=== PATIENT | female | born 1965 | race Caucasian/White ===

== ENCOUNTER 2016-07-15 02:05 | Inpatient (IN) | payer OTHER ==
[2016-07-15] MEDS ORDERED: NS 1,000 ML IV ONE (02:29)
[2016-07-15] MEDS ORDERED: ONDANSETRON 4 MG/2 ML VIAL ONE (02:34)
[2016-07-15] MEDS ORDERED: HYDROmorphONE/DILAUDID 1 MG/ML SYR ONE (02:35)
[2016-07-15 02:52] LABS: % IMMATURE GRANULYOCYTES 0.4 % (0.0-1.1); ABSOLUTE IMMATURE GRANULOCYTES 0.05 10^3/uL (0.00-0.10); ADD DIFF? NO; ADD MORPH? NO; ADD SCAN? NO; ATYPICAL LYMPHOCYTE FLAG 0 (0-99); FRAGMENT RBC FLAG 0 (0-99); HEMOGLOBIN 14.9 g/dL (12.6-16.3); LEFT SHIFT FLG 0 (0-99); LIPEMIA HEMOLYSIS FLAG 90 (0-99); MEAN CELL HEMOGLOBIN 31.2 pg (27.9-34.1); MEAN CELL HEMOGLOBIN CONCENTR. 33.9 g/dL (32.4-36.7); MEAN CELL VOLUME 92.2 fL (81.5-99.8); MEAN PLATELET VOLUME 10.1 fL (8.7-11.7); PLATELET CLUMPS FLAG 0 (0-99); PLATELET COUNT 361 10^3/uL (150-400); RED BLOOD CELL COUNT 4.77 10^6/uL (4.18-5.33)
[2016-07-15] MEDS ORDERED: ONDANSETRON 4 MG/2 ML VIAL IVP ONE (02:56)
[2016-07-15] MEDS ORDERED: HYDROmorphONE/DILAUDID 1 MG/ML SYR IVP ONE ×2 (02:56→03:26)
[2016-07-15 03:01] LABS: INR 2.63 (0.83-1.16); PROTIME(PATIENT) 28.4 SEC (12.0-15.0)
[2016-07-15 03:02] LABS: APTT 35.9 SEC (23.0-38.0)
[2016-07-15 03:18] LABS: ANION GAP 13 mEq/L (8-16); CALCIUM 10.6 mg/dL (8.5-10.4); CARBON DIOXIDE 21 mEq/l (22-31); CHLORIDE 107 mEq/L (97-110); CREATININE 1.3 mg/dL (0.6-1.0); GLOMERULAR FILTRATION RATE 44; GLUCOSE 130 mg/dL (70-100); POTASSIUM 3.9 mEq/L (3.5-5.2); SODIUM 141 mEq/L (134-144)
[2016-07-15] MEDS ORDERED: PROMETHAZINE HCL 25 MG/ML INJ ONE (03:25)
[2016-07-15] MEDS ORDERED: PROMETHAZINE HCL 25 MG/ML INJ IVP ONE (03:26)
--- NOTE | 2016-07-15 04:48 | EDPHY ---
H & P Stated Complaint: epigastric/supraumbilical pain x12h, similar to prior bowel obstruction Time Seen by Provider: 07/15/16 02:35 HPI/ROS: HPI The patient presents with abdominal pain which began suddenly at about 3:00 p.m. yesterday. Pain is diffuse throughout her abdomen, aching and cramping in nature and associated with distension. The pain radiates toward her back. She has had 4 episodes of vomiting, the last 1 was in our waiting room. It is nonbloody. Her last bowel movement was at about 2:00 p.m. yesterday. She has not had a fever. She has been unable to take her usual medications because of the vomiting. Her pain feels identical to a partial small-bowel obstruction she had in January of 2016 which improved with conservative measures. She is followed by Dr. Marcano. REVIEW OF SYSTEMS Constitutional: No fever, no chills. Eyes: No discharge. ENT: No sore throat. Cardiovascular: No chest pain, no palpitations. Respiratory: No cough, no shortness of breath. Gastrointestinal: See HPI Genitourinary: No hematuria. Musculoskeletal: No back pain. Skin: No rashes. Neurological: No headache. PMHx: End-stage renal disease status post kidney transplant with history of lupus, prior hernia repair with mesh PHYSICAL General Appearance: Alert, uncomfortable appearing Eyes: Pupils equal and round no pallor or injection ENT, Mouth: Mucous membranes moist Respiratory: There are no retractions, lungs are clear to auscultation Cardiovascular: Regular rate and rhythm Gastrointestinal: Abdomen is soft and distended, she is tender in her epigastrium and mid abdomen without rebound or guarding Neurological: A&O, moves all extremities Skin: Warm and dry, no rashes Musculoskeletal: Neck is supple non tender Extremities: symmetrical, full range of motion Psychiatric: Patient is oriented X 3, there is no agitation Source: Patient Exam Limitations: No limitations - Personal History LMP (Females 10-55): IUD In Place - Medical/Surgical History Hx Asthma: No Hx Chronic Respiratory Disease: No Hx Diabetes: No Hx Cardiac Disease: No Hx Renal Disease: Yes Hx Cirrhosis: No Hx Alcoholism: No Hx HIV/AIDS: No Hx Splenectomy or Spleen Trauma: Yes Other PMH: PSHx: bilateral nephrectomy. rigtht kidney transplant. splenectomy. lupus antibody anticoag. lupus. CVA. PMHx: hypothyroid - Social History Smoking Status: Never smoked Constitutional: Initial Vital Signs Temperature (C) 36.4 C 07/15/16 02:13 Heart Rate 89 07/15/16 02:13 Respiratory Rate 20 07/15/16 02:13 Blood Pressure 119/89 H 07/15/16 02:13 O2 Sat (%) 100 07/15/16 02:13 O2 Delivery Mode Room Air O2 (L/minute) 2 Allergies/Adverse Reactions: acyclovir Allergy (Intermediate, Verified 07/23/15 10:58) VERTIGO diazepam [From Valium] Allergy (Verified 07/23/15 10:58) droperidol [From Inapsine] Allergy (Verified 07/23/15 10:58) ibuprofen Allergy (Verified 07/23/15 10:58) Sulfa (Sulfonamide Antibiotics) Allergy (Verified 07/23/15 10:58) VANCYCLOVIR Allergy (Intermediate, Uncoded 07/23/15 10:58) VERTIGO Home Medications: Medication Instructions Recorded Levothyroxine [Synthroid 88 mcg 88 mcg PO DAILY06 07/09/09 (*)] cycloSPORINE [sandIMMUNE] 75 mg PO BID 07/09/09 predniSONE 5 mg PO DAILY 07/23/15 Calcitriol [Calcitriol (*)] 0.25 mcg PO TU 01/21/16 Mycophenolate Mofetil [Cellcept] 500 mg PO BID 01/21/16 Warfarin Sodium [Coumadin 7.5MG 7.5 mg PO HS 01/21/16 (*)] Medical Decision Making - Diagnostics Imaging Results: Abdomen two view plain film demonstrates multiple air-fluid levels throughout the small intestine, interpreted by me, radiology interpretation is pending. ED Course/Re-evaluation: In the emergency room, the patient was given IV fluids, antiemetics and Dilaudid for her pain with improvement in her symptoms. Labs were checked and did reveal an elevated white blood cell count. Creatinine was at its baseline with elevated BUN suggestive of dehydration. Because of patient's frequent imaging, KUB was performed in lieu was CT scan which did show air-fluid levels consistent with small-bowel obstruction. I have discussed the case with the hospitalist, Dr. Mcclain who will admit the patient given her multiple medical comorbidities. I have consulted with Dr. Bland, button tacker for , who will see the patient in the morning in consultation. Given that the patient has no vomiting currently she would like to avoid NG tube , and I feel this is reasonable for now. If her pain gets worse or if she develops vomiting, we will place an NG tube. Differential Diagnosis: This is a 50-year-old female with history of end-stage renal disease due to lupus status post kidney transplant on immunosuppressive who presents with abdominal pain, nausea and vomiting for the last several hours. Symptoms are similar to prior bowel obstruction. Differential diagnosis includes small bowel obstruction, partial small bowel obstruction, gastroenteritis, less likely bowel perforation or appendicitis. - Data Points Laboratory Results: Laboratory Results 07/15/16 02:25 07/15/16 02:25 07/15/16 07/15/16 07/15/16 02:25 02:25 02:25 WBC 12.86 10^3/uL H 10^3/uL (3.80-9.50) RBC 4.77 10^6/uL 10^6/uL (4.18-5.33) Hgb 14.9 g/dL g/dL (12.6-16.3) Hct 44.0 % % (38.0-47.0) MCV 92.2 fL fL (81.5-99.8) MCH 31.2 pg pg (27.9-34.1) MCHC 33.9 g/dL g/dL (32.4-36.7) RDW 14.0 % % (11.5-15.2) Plt Count 361 10^3/uL 10^3/uL (150-400) MPV 10.1 fL fL (8.7-11.7) Neut % (Auto) 72.0 % % (39.3-74.2) Lymph % (Auto) 19.7 % % (15.0-45.0) White % (Auto) 7.6 % % (4.5-13.0) Eos % (Auto) 0.1 % L % (0.6-7.6) Baso % (Auto) 0.2 % L % (0.3-1.7) Nucleat RBC Rel Count 0.0 % % (0.0-0.2) Absolute Neuts (auto) 9.26 10^3/uL H 10^3/uL (1.70-6.50) Absolute Lymphs (auto) 2.53 10^3/uL 10^3/uL (1.00-3.00) Absolute Monos (auto) 0.98 10^3/uL H 10^3/uL (0.30-0.80) Absolute Eos (auto) 0.01 10^3/uL L 10^3/uL (0.03-0.40) Absolute Basos (auto) 0.03 10^3/uL 10^3/uL (0.02-0.10) Absolute Nucleated RBC 0.00 10^3/uL 10^3/uL (0-0.01) Immature Gran % 0.4 % % (0.0-1.1) Immature Gran # 0.05 10^3/uL 10^3/uL (0.00-0.10) PT 28.4 SEC H SEC (12.0-15.0) INR 2.63 H (0.83-1.16) APTT 35.9 SEC SEC (23.0-38.0) Sodium 141 mEq/L mEq/L (134-144) Potassium 3.9 mEq/L mEq/L (3.5-5.2) Chloride 107 mEq/L mEq/L (97-110) Carbon Dioxide 21 mEq/l L mEq/l (22-31) Anion Gap 13 mEq/L mEq/L (8-16) BUN 24 mg/dL H mg/dL (7-23) Creatinine 1.3 mg/dL H mg/dL (0.6-1.0) Estimated GFR 44 Glucose 130 mg/dL H mg/dL (70-100) Calcium 10.6 mg/dL H mg/dL (8.5-10.4) Medications Given: Discontinued Medications Hydromorphone HCl (Dilaudid) 1 mg IVP EDNOW ONE Stop: 07/15/16 02:57 Last Admin: 07/15/16 02:40 Dose: 1 mg Hydromorphone HCl (Dilaudid) 1 mg IVP EDNOW ONE Stop: 07/15/16 03:27 Last Admin: 07/15/16 03:30 Dose: 1 mg Sodium Chloride (Ns) 1,000 mls @ 0 mls/hr IV ONCE ONE PRN Reason: Wide Open Stop: 07/15/16 02:30 Last Admin: 07/15/16 02:30 Dose: 1,000 mls Ondansetron HCl (Zofran) 4 mg IVP EDNOW ONE Stop: 07/15/16 02:57 Last Admin: 07/15/16 02:40 Dose: 4 mg Promethazine HCl (Phenergan) 12.5 mg IVP EDNOW ONE Stop: 07/15/16 03:27 Last Admin: 07/15/16 03:30 Dose: 12.5 mg Departure - Departure Disposition: [facility] Acute Clinical Impression: ESRD (end-stage renal disease) due to SLE Bowel obstruction Qualifiers: Intestinal obstruction type: unspecified Qualified Code(s): K56.60 - Unspecified intestinal obstruction Condition: Fair
[2016-07-15] MEDS ORDERED: ACETAMINOPHEN 325 MG TAB PO PRN (04:52)
[2016-07-15] MEDS ORDERED: ONDANSETRON DISINTEGRATING 4 MG TAB PO PRN (04:52)
[2016-07-15] MEDS ORDERED: NS 1,000 ML IV SCH (05:00)
--- NOTE | 2016-07-15 05:10 | PDGENHP ---
History and Physical - Chief Complaint abdominal pain - History of Present Illness Patient is a 50 year old female with history of lupus nephritis, s/p ESRD with renal transplant, on chronic immunosuppression, lupus anticoagulant on systemic anticoagulation, hypothyroidism who presents to the ED with complaint of acute onset abdominal pain, nausea and vomiting. Patient reports she has been experiencing these episodes of severe abdominal pain, which she is usually able to tolerate at home. There was one episode in 01/2016 that became exceptionally severe, didn't improve with home management, so she came to [facility]. She was diagnosed with a partial small bowel obstruction, treated conservatively with NG tube decompression and SBO resolved. Today, patient states she had been feeling well in the morning, even had a normal BM earlier in the day. However, at approximately 3pm, she developed acute onset L sided abdominal pain, distention that felt consistent with her previous SBO. Her pain continued to progress over the following hours, became associated with nausea and vomiting, reports emesis x 6 (nonbilious, nonbloody) . Given this progression of her symptoms, she came to the ED for further evaluation. On arrival to the ED patient was afebrile hemodynamically stable. Labs revealed mild leukocytosis, BMP with creatinine at her baseline. AXR was obtained and revealed air fluid levels that appeared consistent with partial vs complete SBO. She was given symptomatic treatment, NG tube was deferred due to improvement in vomiting and patient was admitted for further management. History Information - Allergies/Home Medication List Allergies/Adverse Reactions: acyclovir Allergy (Intermediate, Verified 07/23/15 10:58) VERTIGO diazepam [From Valium] Allergy (Verified 07/23/15 10:58) droperidol [From Inapsine] Allergy (Verified 07/23/15 10:58) ibuprofen Allergy (Verified 07/23/15 10:58) Sulfa (Sulfonamide Antibiotics) Allergy (Verified 07/23/15 10:58) VANCYCLOVIR Allergy (Intermediate, Uncoded 07/23/15 10:58) VERTIGO Home Medications: Levothyroxine [Synthroid 88 mcg (*)] 88 mcg PO DAILY06 07/09/09 [Last Taken ] cycloSPORINE [sandIMMUNE] 75 mg PO BID 07/09/09 [Last Taken 01/20/16] predniSONE 5 mg PO DAILY 07/23/15 [Last Taken 01/20/16] Calcitriol [Calcitriol (*)] 0.25 mcg PO TU 01/21/16 [Last Taken 01/19/16] Mycophenolate Mofetil [Cellcept] 500 mg PO BID 01/21/16 [Last Taken 01/20/16 21: 00] Warfarin Sodium [Coumadin 7.5MG (*)] 7.5 mg PO HS 01/21/16 [Last Taken 01/20/16] I have personally reviewed and updated: family history, medical history, social history, surgical history - Past Medical History Additional medical history: Lupus with nephropathy resulting in 3 renal transplants and chronic kidney disease stage 3 with baseline creatinine 1.4, lupus antiphospholipid antibody on chronic systemic anticoagulation, hypothyroidism - Surgical History Additional surgical history: 3 renal transplants with 1 transplanted kidney removed surgically, hernia repair, peritoneal catheter placement x2 - Family History Positive for: non-pertinent Additional family history: no recent sick family contacts - Social History Smoking Status: Never smoked Alcohol Use: None Drug Use: None 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 Review of Systems ROS: 10pt was reviewed & negative except for what was stated in HPI & below Physical Exam Temp Pulse Resp BP Pulse Ox 36.4 C 89 20 119/89 H 98 07/15/16 02:13 07/15/16 02:13 07/15/16 02:13 07/15/16 02:13 07/15/16 02:30 Constitutional: no apparent distress, appears nourished, uncomfortable Eyes: PERRL, anicteric sclera, EOMI Ears, Nose, Mouth, Throat: moist mucous membranes, hearing normal, ears appear normal, no oral mucosal ulcers Cardiovascular: regular rate and rhythym, no murmur, rub, or gallop, pulses symmetric bilaterally, No JVD, No edema Peripheral Pulses: 2+: dorsalis-pedis (R), dorsalis-pedis (L) Respiratory: no respiratory distress, no rales or rhonchi, clear to auscultation Gastrointestinal: other (Hypoactive BS, mildly distended diffusely tender) Genitourinary: no bladder fullness, no bladder tenderness Skin: warm, normal color, no fluctuance, no induration, erythema (erythema without ulceration or blistering on RUQ of abdomen), No mottled Musculoskeletal: full muscle strength, no muscle tenderness, normal joint ROM, no joint effusions Neurologic: AAOx3, sensation intact bilaterally, CN II-XII Intact, No weakness, No numbness Psychiatric: interacting appropriately, not anxious, not encephalopathic, thought process linear Lab Data & Imaging Review 07/15/16 02:25 07/15/16 02:25 WBC 12.86 10^3/uL (3.80-9.50) H 07/15/16 02:25 RBC 4.77 10^6/uL (4.18-5.33) 07/15/16 02:25 Hgb 14.9 g/dL (12.6-16.3) 07/15/16 02:25 Hct 44.0 % (38.0-47.0) 07/15/16 02:25 MCV 92.2 fL (81.5-99.8) 07/15/16 02:25 MCH 31.2 pg (27.9-34.1) 07/15/16 02:25 MCHC 33.9 g/dL (32.4-36.7) 07/15/16 02:25 RDW 14.0 % (11.5-15.2) 07/15/16 02:25 Plt Count 361 10^3/uL (150-400) 07/15/16 02:25 MPV 10.1 fL (8.7-11.7) 07/15/16 02:25 Neut % (Auto) 72.0 % (39.3-74.2) 07/15/16 02:25 Lymph % (Auto) 19.7 % (15.0-45.0) 07/15/16 02:25 Winn % (Auto) 7.6 % (4.5-13.0) 07/15/16 02:25 Eos % (Auto) 0.1 % (0.6-7.6) L 07/15/16 02:25 Baso % (Auto) 0.2 % (0.3-1.7) L 07/15/16 02:25 Nucleat RBC Rel Count 0.0 % (0.0-0.2) 07/15/16 02:25 Absolute Neuts (auto) 9.26 10^3/uL (1.70-6.50) H 07/15/16 02:25 Absolute Lymphs (auto) 2.53 10^3/uL (1.00-3.00) 07/15/16 02:25 Absolute Monos (auto) 0.98 10^3/uL (0.30-0.80) H 07/15/16 02:25 Absolute Eos (auto) 0.01 10^3/uL (0.03-0.40) L 07/15/16 02:25 Absolute Basos (auto) 0.03 10^3/uL (0.02-0.10) 07/15/16 02:25 Absolute Nucleated RBC 0.00 10^3/uL (0-0.01) 07/15/16 02:25 Immature Gran % 0.4 % (0.0-1.1) 07/15/16 02:25 Immature Gran # 0.05 10^3/uL (0.00-0.10) 07/15/16 02:25 PT 28.4 SEC (12.0-15.0) H 07/15/16 02:25 INR 2.63 (0.83-1.16) H 07/15/16 02:25 APTT 35.9 SEC (23.0-38.0) 07/15/16 02:25 Sodium 141 mEq/L (134-144) 07/15/16 02:25 Potassium 3.9 mEq/L (3.5-5.2) 07/15/16 02:25 Chloride 107 mEq/L (97-110) 07/15/16 02:25 Carbon Dioxide 21 mEq/l (22-31) L 07/15/16 02:25 Anion Gap 13 mEq/L (8-16) 07/15/16 02:25 BUN 24 mg/dL (7-23) H 07/15/16 02:25 Creatinine 1.3 mg/dL (0.6-1.0) H 07/15/16 02:25 Estimated GFR 44 07/15/16 02:25 Glucose 130 mg/dL (70-100) H 07/15/16 02:25 Calcium 10.6 mg/dL (8.5-10.4) H 07/15/16 02:25 Visualized and Interpreted imaging results: Yes Interpretation: AXR: small bowel kanchan c/w obstruction Assessment & Plan Assessment: Patient is a 50-year-old female with history of ESRD s/p previous renal transplant on chronic immunosuppression, chronic kidney disease stage 3, lupus anticoagulant who presents with acute abdominal pain. ED evaluation reveals likely acute small bowel obstruction. Plan: # Small bowel obstruction. Patient describes her symptoms as consistent with her previous episode of SBO. SBO likely due to adhesions with an extensive past abdominal surgical history. AXR shows abnormal gas pattern that appears consistent with SBO, unclear if complete vs partial. Patient currently not vomiting and pain is controlled with dilaudid, so will defer NG tube for now. If any additional vomiting occurs , will place NGT to suction. Patient's surgeon, Dr. Marcano, was informed of her admission and will evaluate patient in AM. - NPO including to meds - continue IVF hydration - IV pain and antiemetics as needed # chronic kidney disease stage 3 History of lupus nephropathy requiring renal transplant, creatinine currently at baseline. Will continue IV hydration and monitor BMP. - avoid nephrotoxic meds # Chronic immunosuppression Patient is chronically immunosuppressed in the setting of renal transplant. She did not take her PM doses of meds this evening due to her symptoms. Given strict NPO status, will have to adjust her immunosuppression regimen to IV regimen. In 01/2016 admission, Nephrology initiated IV steroid alternative therapy. Will consult nephrology in AM. (Dr. Carr is her outpatient tower control operator/PMD) # Lupus antiphospholipid antibody Chronically on systemic anticoagulation, INR is therapeutic. Will continue coumadin and monitor INR. # dispo: admit to inpatient status for management of acute SBO # gen: NPO DVT ppx: currently on Coumadin Full code
[2016-07-15] MEDS: ONDANSETRON 4 MG/2 ML VIAL IVP PRN ×3 (05:25→18:53)
[2016-07-15] MEDS: HYDROmorphONE/DILAUDID 1 MG/ML SYR IVP PRN ×5 (05:25→19:48)
[2016-07-15] MEDS: PROMETHAZINE HCL 25 MG/ML INJ IVP PRN ×2 (08:58→19:53)
[2016-07-15 10:04] LABS: COLOR YELLOW; LEUKOCYTE ESTERASE,URINE NEGATIVE (NEGATIVE); NITRITE,URINE NEGATIVE (NEGATIVE)
[2016-07-15 10:10] LABS: BACTERIA TRACE /hpf (NONE SEEN)
[2016-07-15] MEDS ORDERED: MYCOPHENOLATE MOFETIL HCL IV SCH ×2 (11:30→21:00)
[2016-07-15] MEDS ORDERED: D5W IV SCH ×2 (11:30→21:00)
[2016-07-15] MEDS ORDERED: METOCLOPRAMIDE 10 MG/2 ML VIAL IVP PRN (12:23)
--- NOTE | 2016-07-15 12:26 | GCON ---
[f rep st] CONSULTATION DATE OF CONSULTATION: 07/15/2016 REFERRING PHYSICIAN: Zehra Mcclain MD REASON FOR CONSULTATION: Kidney transplant. HISTORY OF PRESENT ILLNESS: History is taken from discussion with the patient, review of past medic al records from Dr. Carr, and review of the electronic medical record here, all of which I summ arize here. The patient is a 50-year-old female with history of end-stage renal disease due to lupus nephritis, status post 3 kidney transplants. Her first was at age 19 and was rejected after 10 years. She had a second transplant that lasted 5 years. Twelve years ago, she underwent another transplant and burk s been doing very well. Her creatinine runs between 1.2 and 1.4. She is maintained on CellCept, pr ednisone, and Prograf. She has a history of bilateral hopi nephrectomies around the time of her f irst kidney transplant, for unclear reasons, as well as a splenectomy. She has a history of recurre nt zoster, on prophylactic famciclovir. She was admitted to the hospital yesterday because of abdom inal pain, bloating, refractory nausea and vomiting. She had an episode that was similar last Decem leticia and was thought to have a partial small bowel obstruction. Her abdominal x-ray in the emergency department did not clearly demonstrate a small bowel obstruction. She continues to have nausea, ab dominal pain, and dry heaves. She also remarks that she has active zoster. She increased her dose of famciclovir earlier this week. She has lesions on her right abdomen, which is a typical location for her. She has not had a bowel movement since yesterday. She did pass flatus x2 today. PAST MEDICAL HISTORY: See HPI. -donor kidney transplant 2003, [facility], with 10 0% PRA. Anticardiolipin antibody with prior stroke, on chronic Coumadin with target INR 3 to 3.5. Hypothyroidism, hyperlipidemia, amenorrhea, hyperprolactinemia, alopecia, iron deficiency anemia, os teoporosis. Thyroid nodule, status post ablation. Hypertension, recurrent diarrhea. PAST SURGICAL HISTORY: Breast reduction, hernia repair. FAMILY HISTORY: She is adopted. SOCIAL HISTORY: She is a nonsmoker and does not use drugs. She is single. She has a boyfriend. Kirby kerns are planning a trip to [place], leaving today. 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 ALLERGIES: Sulfa, Valium, Inapsine, Valtrex, acyclovir. REVIEW OF SYSTEMS: See HPI. No chest pain, shortness of breath, or fevers. No dysuria. I reviewe d the 10-system review from her emergency department note and have nothing to add to that. PHYSICAL EXAMINATION: VITAL SIGNS: 123/85. Heart rate is 57. Respiratory rate is 16, satting 97% on room air, temp 36.8 Celsius. GENERAL: Very pleasant, not overweight, middle-aged fem joe who is moderately uncomfortable. HEAD: Atraumatic, normocephalic. EYES: Without scleral icte justa. ENT: Oral mucosa is slightly dry. NECK: No gross lymphadenopathy. HEART: Regular rate and rhythm without murmurs, gallops, rubs. LUNGS: Clear to auscultation bilaterally. ABDOMEN: Mildl y distended, diffusely tender without rebound or guarding. There are several raised erythematous le sions without vesicles on the right side of her abdomen, mostly in the right upper quadrant. LOWER EXTREMITIES: Without any edema. SKIN: She has tenting on her hands. No rashes. MUSCULOSKELETAL: No gross joint swelling or deformities. NEUROLOGICAL: Moves all extremities well. Alert and con versive. No focal deficits. LABS AND STUDIES: Sodium is 141, potassium 3.9, CO2 21, BUN 24, creatinine 1.3, calcium 10.6. Whit e count 12.9, hemoglobin 14.9, platelets 361. Urinalysis: 2+ blood, 3-5 red cells, trace bacteria. INR is 2.6. I personally reviewed her abdominal x-ray, which showed some dilated loops of small bowel but no air -fluid levels. IMPRESSION AND PLAN: 1. Kidney transplant recipient. She is unable to take p.o. at this time due to nausea and vomiting . I will convert her to IV CellCept and Solu-Medrol. We can hold Prograf for a couple of days unti l she is able to take pills. Her creatinine is currently at baseline. Avoid volume depletion. Con tinue normal saline infusion. 2. Abdominal pain, nausea, and vomiting. Abdominal x-ray did not confirm small bowel obstruction, although her clinical history is suggestive. General Surgery to evaluate today. No peritoneal sign s on exam. I do not think her zoster is enough to cause this degree of nausea as well as diffuse pa in. It sounds like she is to have a small bowel follow-through to look for bowel obstruction or a t ransition point. I would consider placement of an NG tube. 3. Antiphospholipid antibody syndrome. She is normally on Coumadin. She should be bridged with he amy, given her history of prior stroke. Hopefully, she can start taking pills again soon. 4. Zoster. She takes famciclovir prophylactically. Increase dose to 500 mg daily. Her GFR is rig ht at the cutoff where you would even dose 500 mg twice daily. Unfortunately, she cannot take pills . She is allergic to acyclovir and Valtrex, unfortunately. We will need to review with LEO and Fe valencia whether there are any other options. I will defer to the primary service on this. 5. Lupus. No symptoms to suggest flare. /[id number]/MODL
--- NOTE | 2016-07-15 13:45 | GCON ---
[f rep st] CONSULTATION DATE OF CONSULTATION: 07/15/2016 HISTORY OF PRESENT ILLNESS: This is a 50-year-old female with a history of abdominal pain, nausea a nd vomiting. Per the patient, this began suddenly yesterday afternoon. The patient developed the o nset of crampy abdominal pain, followed by multiple episodes of nausea and vomiting. Of note, the p katelynn has had multiple episodes similar to this, at least 1-2 per month. Patient was hospitalized for a similar issue in January of 2016. This resolved with conservative therapy. Patient states t hat this current episode has improved significantly. She denies significant pain at this point. Sh krista still has some nausea but has not had any recent vomiting. The patient denies any fever or chills . The patient has had some flatus today but last bowel movement was yesterday. Of note, the patien t has had multiple renal transplants as well as nephrectomy and hernia repair in the past. PAST MEDICAL HISTORY: Significant for lupus, end-stage renal disease. CURRENT MEDICATIONS: Include calcitriol, cyclosporine, famciclovir, levothyroxine, CellCept, predni sone and Coumadin. ALLERGIES: Include acyclovir, diazepam, droperidol and nonsteroidal anti-inflammatories. PAST SURGICAL HISTORY: As above. SOCIAL HISTORY: Patient is a nonsmoker. PHYSICAL EXAM: VITAL SIGNS: Temperature 36.8, pulse 57, respirations 16, blood pressure is 123/85. GENERAL: She is alert female who appears uncomfortable. HEENT: Sclerae are anicteric. NECK: T here is no evidence of a jugular venous distention. HEART: Regular rate and rhythm. LUNGS: Clear to auscultation bilaterally. Her abdomen is distended. There are multiple well-healed surgical sc ars. She has mild, diffuse tenderness to palpation. There is no rebound or guarding. No distinct masses are identified. EXTREMITIES: Without cyanosis, clubbing, or edema. DIAGNOSTIC DATA: The patient has a CBC with a white count of 12.9, hemoglobin 14.9, hematocrit 44, and platelets of 361. Chemistries demonstrate a sodium of 141, potassium 3.9, chloride 107, CO2 21, BUN 24, creatinine 1.3. Glucose of 130. PTT is 28.4, INR is 2.63 and PTT is 35.9. DIAGNOSTIC IMAGING: Patient has a flat plate of the abdomen. This demonstrates no evidence of free air. There is minimal bowel dilation. ASSESSMENT AND PLAN: This is a 50-year-old female with possible partial small bowel obstruction. O ptions were discussed at length with the patient. At this point, I agree with withholding the nasog astric tube as she is not currently vomiting. She understands this may become necessary if her cond ition does not improve. We will continue n.p.o. status with IV hydration and continue bowel rest. A possibility of small bowel follow-through was discussed with the patient. Signs and symptoms of c oncern were explained. Her questions were answered. /[id number]/MODL
[2016-07-15] MEDS: D5W IV SCH ×2 (14:02→21:37)
[2016-07-15] MEDS: methylPREDNISolone SOD SUCC 40 MG/ML VIAL IVP SCH (14:02)
[2016-07-15] MEDS: MYCOPHENOLATE MOFETIL HCL IV SCH ×2 (14:02→21:37)
--- NOTE | 2016-07-15 16:56 | HOSPPROG ---
Hospitalist Progress Note Assessment/Plan: Assessment: 50-year-old female p/w acute SBO Plan: # Small bowel obstruction. Acute, more visible on repeat x-ray this AM ( personally interpreted), w/ ongoing nausea and abd pain - d/w patient, she is amenable to NGT at this time - add reglan PRN, cont zofran/phenergan and PRN dilaudid - cont NPO - appreciate surgical eval # Chronic kidney disease stage 3. S/p transplant for SLE, currently on immunosuppressives - d/w Dr. Flaherty, she will get cellcept and steroids while NPO - cont monitor Cr # Chronic immunosuppression. Appreciate renal asst w/ Rx # Lupus antiphospholipid antibody. Cont to monitor INR, bridge w/ lovenox when < 2 Diet. NPO PPx. High risk, remain systemically anticoagulated Code. Full Dispo. ADD uncertain, remain NPO and on IVF Subjective: patient reports ongoing nausea, dry heaving Objective: Vital Signs Temp Pulse Resp BP Pulse Ox 36.8 C 61 14 102/66 94 07/15/16 07:44 07/15/16 16:00 07/15/16 16:00 07/15/16 16:00 07/15/16 16:00 07/14/16 07/15/16 07/16/16 05:59 05:59 05:59 Intake Total 1000 Output Total 300 Balance 1000 -300 PT 28.4 SEC (12.0-15.0) H 07/15/16 02:25 INR 2.63 (0.83-1.16) H 07/15/16 02:25 - Time Spent With Patient Time Spent with Patient: greater than 35 minutes Time Spent with Patient: Greater than 35 minutes spent on this patients care, greater than 50% of time spent counseling, educating, and coordinating care regarding the above mentioned plan. 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
[2016-07-16] MEDS: HYDROmorphONE/DILAUDID 1 MG/ML SYR IVP PRN ×5 (00:14→19:54)
[2016-07-16] MEDS: PROMETHAZINE HCL 25 MG/ML INJ IVP PRN ×2 (02:50→19:52)
[2016-07-16 06:27] LABS: INR 3.54 (0.83-1.16)
[2016-07-16 07:02] LABS: ALANINE AMINOTRANSFERASE 26 IU/L (9-52); ALBUMIN 2.7 g/dL (3.5-5.0); ALKALINE PHOSPHATASE 40 IU/L (38-126); ANION GAP 6 mEq/L (8-16); ASPARTATE AMINOTRANSFERASE 18 IU/L (14-46); BILIRUBIN,TOTAL 0.8 mg/dL (0.1-1.4); CALCIUM 7.2 mg/dL (8.5-10.4); CARBON DIOXIDE 20 mEq/l (22-31); CHLORIDE 115 mEq/L (97-110); GLOMERULAR FILTRATION RATE 59; GLUCOSE 88 mg/dL (70-100); POTASSIUM 3.8 mEq/L (3.5-5.2); SODIUM 141 mEq/L (134-144); TOTAL PROTEIN 4.9 g/dL (6.3-8.2)
[2016-07-16 07:30] LABS: ABSOLUTE NRBC COUNT 0.02 10^3/uL (0-0.01); ADD DIFF? YES; ADD MORPH? NO; ATYPICAL LYMPHOCYTE FLAG 0 (0-99); FRAGMENT RBC FLAG 10 (0-99); HEMATOCRIT 37.1 % (38.0-47.0); LIPEMIA HEMOLYSIS FLAG 80 (0-99); MEAN CELL HEMOGLOBIN 30.8 pg (27.9-34.1); MEAN CELL HEMOGLOBIN CONCENTR. 32.3 g/dL (32.4-36.7); MEAN CELL VOLUME 95.4 fL (81.5-99.8); MEAN PLATELET VOLUME 10.7 fL (8.7-11.7); NRBC-AUTO% 0.5 % (0.0-0.2); PLATELET CLUMPS FLAG 0 (0-99); PLATELET COUNT 291 10^3/uL (150-400); RED BLOOD CELL COUNT 3.89 10^6/uL (4.18-5.33); RED CELL DISTRIBUTION WIDTH 14.5 % (11.5-15.2)
[2016-07-16 07:35] LABS: ADD SCAN? NO; LEFT SHIFT FLG 280 (0-99)
[2016-07-16 08:01] LABS: PLATELET ESTIMATE ADEQUATE (ADEQ)
[2016-07-16] MEDS: methylPREDNISolone SOD SUCC 40 MG/ML VIAL IVP SCH (08:48)
[2016-07-16] MEDS: MYCOPHENOLATE MOFETIL HCL IV SCH ×2 (08:52→21:22)
[2016-07-16] MEDS: D5W IV SCH ×2 (08:52→21:22)
--- NOTE | 2016-07-16 09:14 | HOSPPROG ---
Hospitalist Progress Note Assessment/Plan: * recurrent small-bowel obstruction * Also symptoms over the last year of intermittent episodes of abdominal pain that may be consistent with transient obstruction * Continue NG tube decompression * Surgery following * history of renal transplant * Nephrology input appreciated * Continue immunosuppressives * anti phospholipid syndrome * INR 3.5 * Leading drift down * Heparin or Lovenox bridging * history of lupus Subjective: Still with nausea abdominal pain. Not passing any gas Objective: Vital Signs Temp Pulse Resp BP Pulse Ox 37.1 C 89 15 118/78 97 07/15/16 20:02 07/15/16 20:02 07/15/16 20:02 07/15/16 20:02 07/15/16 20:02 Laboratory Results 07/16/16 06:00 07/16/16 06:00 07/15/16 07/16/16 07/17/16 05:59 05:59 05:59 Intake Total 1000 2105 Output Total 475 Balance 1000 1630 PT 36.0 SEC (12.0-15.0) H 07/16/16 06:00 INR 3.54 (0.83-1.16) H 07/16/16 06:00 - Time Spent With Patient Time Spent with Patient: greater than 35 minutes (Discussed possibility of surgery) Time Spent with Patient: Greater than 35 minutes spent on this patients care, greater than 50% of time spent counseling, educating, and coordinating care regarding the above mentioned plan. 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
[2016-07-16] MEDS ORDERED: D5W 1/2 NS W/ 20 KCl/L 1,000 ML IV SCH (09:15)
[2016-07-16] MEDS ORDERED: NS 1,000 ML IV ONE ×4 (09:26→10:30)
[2016-07-16] MEDS ORDERED: NS 500 ML IV SCH (09:30)
[2016-07-16] MEDS ORDERED: NS 1,000 ML IV SCH (09:45)
[2016-07-16] MEDS ORDERED: D5W 1/2 NS 1,000 ML IV SCH (09:45)
--- NOTE | 2016-07-16 10:05 | SOAPPROG ---
[place] Progress Note Assessment/Plan: Assessment/Plan: h/o renal transplant: baseline Cr around 1.2-1.4, currently better than baseline at 1.0. - Will continue IV solumedrol and IV Cellcept. - Will switch back to her PO regimen as soon as she is able to tolerate pills. - Will continue to monitor renal function. - Will switch IVFs to D51/2NS @ 125ml/hr. Likely partial SBO: pt currently being managed conservatively with bowel rest and NG tube, surgery following. Subjective: No acute events overnight. Pt had NG tube placed yesterday, still having some nausea but less vomiting, also with abdominal pain. Objective: Vital Signs Temp Pulse Resp BP Pulse Ox 36.8 C 87 12 109/95 H 96 07/16/16 08:00 07/16/16 08:00 07/16/16 08:00 07/16/16 08:00 07/16/16 08:00 Laboratory Results 07/16/16 06:00 07/16/16 06:00 07/15/16 07/16/16 07/17/16 05:59 05:59 05:59 Intake Total 1000 2105 Output Total 475 Balance 1000 1630 PT 36.0 SEC (12.0-15.0) H 07/16/16 06:00 INR 3.54 (0.83-1.16) H 07/16/16 06:00 General: alert and oriented, no acute distress Eyes: EOMI, PERRL OP: NG tube in place CV: RRR Resp: nonlabored respirations on RA Abd: soft, mild TTP Ext: no edema Neuro: CN II-XII grossly intact, no asterixis Psych: cooperative, appropriate mood and affect ICD10 Worksheet Patient Problems: Problems Problem Status Onset Bowel obstruction Acute 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
[2016-07-16] MEDS: LEVOTHYROXINE 100 MCG/5 ML SYR IVP SCH ×2 (10:37→11:11)
[2016-07-16] MEDS: FAMCICLOVIR 250 MG TAB PO SCH (11:11)
--- NOTE | 2016-07-16 11:19 | SOAPPROG ---
[place] Progress Note Assessment/Plan: Assessment:partial SBO anticoagulation/anti-phospholipid antibody renal transplant Plan:SBFT discussed possible need for enterolyisis 07/16/16 11:16 Subjective: ongoing intermitant pain/passed small amount of flatus Objective: Vital Signs Temp Pulse Resp BP Pulse Ox 36.8 C 87 12 109/95 H 96 07/16/16 08:00 07/16/16 08:00 07/16/16 08:00 07/16/16 08:00 07/16/16 08:00 Laboratory Results 07/16/16 06:00 07/16/16 06:00 07/15/16 07/16/16 07/17/16 05:59 05:59 05:59 Intake Total 1000 2105 Output Total 475 Balance 1000 1630 PT 36.0 SEC (12.0-15.0) H 07/16/16 06:00 INR 3.54 (0.83-1.16) H 07/16/16 06:00 Physical Exam - Physical Exam General Appearance: alert, mild distress Abdomen: soft, distended, other (mild RUQ tenderness/no guarding/hypoactive bowel sounds) ICD10 Worksheet Patient Problems: Problems Problem Status Onset Bowel obstruction Acute 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
[2016-07-16] MEDS ORDERED: NS 500 ML IV ONE (11:30)
[2016-07-16] MEDS: D5W 1/2 NS 1,000 ML IV SCH (13:22)
[2016-07-16 20:42] LABS: INR 2.81 (0.83-1.16); PROTIME(PATIENT) 29.9 SEC (12.0-15.0)
[2016-07-16] MEDS ORDERED: PHYTONADIONE 2.5 MG in NS 50 ML IV ONE (21:34)
--- NOTE | 2016-07-16 21:40 | SOAPPROG ---
Downtime Inpatient MD Late Entry SOAP Note: SBFT shows no progress after 5 hours/high grade distal small bowel obstruction. I recommended returning to low continuous suction and initiating reversal of coumadin in preparation for surgery. Discussed with patients BLU Rodríguez and Kalyani. Dr. Young and I discussed gentle reversal with small dose of vit K/may need FFP-type and screen sent. Orlando Marcano MD, FACS
[2016-07-17] MEDS: HYDROmorphONE/DILAUDID 1 MG/ML SYR IVP PRN ×3 (01:48→07:22)
[2016-07-17] MEDS: ONDANSETRON 4 MG/2 ML VIAL IVP PRN ×4 (01:48→11:29)
[2016-07-17] MEDS: PROMETHAZINE HCL 25 MG/ML INJ IVP PRN (01:54)
[2016-07-17 05:44] LABS: ADD DIFF? YES; ADD MORPH? NO; ADD SCAN? YES; ATYPICAL LYMPHOCYTE FLAG 0 (0-99); FRAGMENT RBC FLAG 0 (0-99); HEMATOCRIT 39.6 % (38.0-47.0); HEMOGLOBIN 12.8 g/dL (12.6-16.3); LIPEMIA HEMOLYSIS FLAG 80 (0-99); MEAN CELL HEMOGLOBIN 30.5 pg (27.9-34.1); MEAN CELL HEMOGLOBIN CONCENTR. 32.3 g/dL (32.4-36.7); MEAN CELL VOLUME 94.5 fL (81.5-99.8); MEAN PLATELET VOLUME 10.1 fL (8.7-11.7); PLATELET CLUMPS FLAG 0 (0-99); PLATELET COUNT 273 10^3/uL (150-400); RED BLOOD CELL COUNT 4.19 10^6/uL (4.18-5.33); RED CELL DISTRIBUTION WIDTH 14.3 % (11.5-15.2)
[2016-07-17 05:46] LABS: LEFT SHIFT FLG 300 (0-99)
[2016-07-17 05:54] LABS: INR 1.71 (0.83-1.16); PROTIME(PATIENT) 20.1 SEC (12.0-15.0)
[2016-07-17 06:03] LABS: ALANINE AMINOTRANSFERASE 32 IU/L (9-52); ALBUMIN 3.4 g/dL (3.5-5.0); ALKALINE PHOSPHATASE 42 IU/L (38-126); ANION GAP 4 mEq/L (8-16); ASPARTATE AMINOTRANSFERASE 26 IU/L (14-46); BILIRUBIN,TOTAL 1.3 mg/dL (0.1-1.4); CALCIUM 9.3 mg/dL (8.5-10.4); CARBON DIOXIDE 23 mEq/l (22-31); CHLORIDE 108 mEq/L (97-110); CREATININE 1.2 mg/dL (0.6-1.0); GLOMERULAR FILTRATION RATE 48; GLUCOSE 113 mg/dL (70-100); POTASSIUM 4.4 mEq/L (3.5-5.2); SODIUM 135 mEq/L (134-144); TOTAL PROTEIN 6.3 g/dL (6.3-8.2)
[2016-07-17 06:17] LABS: PLATELET ESTIMATE ADEQUATE (ADEQ)
[2016-07-17] MEDS ORDERED: ALTEPLASE 2 MG VIAL IVP PRN (08:34)
--- NOTE | 2016-07-17 08:34 | SOAPPROG ---
[facility] Progress Note Assessment/Plan: Assessment: distal SBO anticoagulation/anti-phospholipid antibody-INR 1.7 this AM renal transplant Plan: I recommended laparotomy/lysis adhesions she will likely need IV fluids for the next 3-7 days and I recommended a PICC since she has extremely poor peripheral access 07/16/16 11:16 07/17/16 08:32 Subjective: ongoing pain/had some loose stool Objective: Vital Signs Temp Pulse Resp BP Pulse Ox 37.1 C 80 18 102/60 92 07/16/16 20:00 07/17/16 04:00 07/17/16 04:00 07/17/16 04:00 07/17/16 04:00 Laboratory Results 07/17/16 05:20 07/17/16 05:20 07/16/16 07/17/16 07/18/16 05:59 05:59 05:59 Intake Total 2105 2415 Output Total 475 1600 Balance 1630 815 PT 20.1 SEC (12.0-15.0) H D 07/17/16 05:20 INR 1.71 (0.83-1.16) H 07/17/16 05:20 KUB this morning shows persistant contrast in the jejunum/ileum with no contrast in the colon Physical Exam - Physical Exam General Appearance: alert, mild distress Cardiac/Chest: regular rate, rhythm Abdomen: soft, distended, other (hypoactive bowel sounds/tympanitic and diffusely tender without guarding) ICD10 Worksheet Patient Problems: Problems Problem Status Onset Bowel obstruction Acute 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
--- NOTE | 2016-07-17 10:22 | SOAPPROG ---
[place] Progress Note Assessment/Plan: Assessment/Plan: h/o renal transplant: baseline Cr around 1.2-1.4, currently better than baseline at 1.2. - Will continue IV solumedrol and IV Cellcept. - Will switch back to her PO regimen as soon as she is able to tolerate pills. - Will continue to monitor renal function. - Continue IVFs of D51/2NS. Hypotension: BP is a bit soft this am, will give 500ml NS bolus. SBO: has been managed conservatively thus far, SBFT shows high grade stenosis yesterday. Planning on surgical intervention today. Subjective: No acute events overnight. Pt denies any vomiting. She had small bowel follow through, which showed high grade stenosis, planning on surgery today. Objective: Vital Signs Temp Pulse Resp BP Pulse Ox 37.0 C 74 17 97/68 L 96 07/17/16 08:00 07/17/16 08:00 07/17/16 08:00 07/17/16 08:00 07/17/16 08:00 Laboratory Results 07/17/16 05:20 07/17/16 05:20 07/16/16 07/17/16 07/18/16 05:59 05:59 05:59 Intake Total 2105 2415 Output Total 475 1600 Balance 1630 815 PT 20.1 SEC (12.0-15.0) H D 07/17/16 05:20 INR 1.71 (0.83-1.16) H 07/17/16 05:20 General: alert and oriented, no acute distress Eyes; EOMI, PERRL OP: Clear, NG tube in place CV: RRR Resp: N onlabored respirations on RA Abd: Soft, ND Ext: no edema Neuro; CN II-XII grossly intact, no asterixis Psych: cooperative, appropriate mood and affect ICD10 Worksheet Patient Problems: Problems Problem Status Onset Bowel obstruction Acute 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
[2016-07-17] MEDS: LEVOTHYROXINE 100 MCG/5 ML SYR IVP SCH (10:25)
[2016-07-17] MEDS: MYCOPHENOLATE MOFETIL HCL IV SCH ×2 (10:25→21:20)
[2016-07-17] MEDS: D5W IV SCH ×2 (10:25→21:20)
[2016-07-17] MEDS ORDERED: NS 1,000 ML IV SCH (10:30)
--- NOTE | 2016-07-17 10:49 | HOSPPROG ---
Hospitalist Progress Note Assessment/Plan: * recurrent small-bowel obstruction * Also symptoms over the last year of intermittent episodes of abdominal pain that may be consistent with transient obstruction * small-bowel follow-through shows high-grade obstruction - will go to surgery * history of renal transplant * Nephrology input appreciated * Continue immunosuppressives * anti phospholipid syndrome * INR 1.7 * will need heparin bridging after surgery * shingles * improving * continue oral famciclovir * history of lupus Subjective: had small bowel movement but still with abdominal distention Objective: Vital Signs Temp Pulse Resp BP Pulse Ox 37.0 C 74 17 97/68 L 96 07/17/16 08:00 07/17/16 08:00 07/17/16 08:00 07/17/16 08:00 07/17/16 08:00 Laboratory Results 07/17/16 05:20 07/17/16 05:20 07/16/16 07/17/16 07/18/16 05:59 05:59 05:59 Intake Total 2105 2415 Output Total 475 1600 Balance 1630 815 PT 20.1 SEC (12.0-15.0) H D 07/17/16 05:20 INR 1.71 (0.83-1.16) H 07/17/16 05:20 discussed with surgery, small-bowel follow-through reviewed and interpreted - Physical Exam Constitutional: no apparent distress, appears nourished, not in pain Eyes: anicteric sclera, EOMI Ears, Nose, Mouth, Throat: moist mucous membranes, hearing normal Cardiovascular: regular rate and rhythym Respiratory: no respiratory distress, no rales or rhonchi, clear to auscultation Gastrointestinal: other ( decreased bowel sounds, distended mild tenderness) Skin: warm Neurologic: AAOx3 Psychiatric: interacting appropriately, not anxious, not encephalopathic, thought process linear ICD10 Worksheet Patient Problems: Problems Problem Status Onset Bowel obstruction Acute 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
[2016-07-17] MEDS: methylPREDNISolone SOD SUCC 40 MG/ML VIAL IVP SCH (11:22)
[2016-07-17] MEDS: FAMCICLOVIR 250 MG TAB PO SCH (12:35)
[2016-07-17] MEDS ORDERED: MIDAZOLAM 2 MG/2 ML VIAL ONE (13:07)
[2016-07-17] MEDS ORDERED: CEFAZOLIN 2 GM/DEXTROSE/100 ML BAG IV ONE (13:17)
[2016-07-17] MEDS ORDERED: ceFAZolin 2 GM/DEXTROSE 100 ML IV ONE (13:19)
[2016-07-17] MEDS ORDERED: ROCURONIUM 50 MG/5 ML VIAL ONE (13:26)
[2016-07-17] MEDS ORDERED: fentaNYL 100 MCG/2 ML INJ ONE ×2 (13:26→14:58)
[2016-07-17] MEDS ORDERED: PROPOFOL/EMULSION 500 MG/50 ML BOTTLE IV ONE (13:26)
[2016-07-17] MEDS ORDERED: DEXAMETHASONE 4 MG/ML VIAL ONE (13:27)
[2016-07-17] MEDS ORDERED: LIDOCAINE 2% 100 MG/5 ML SYR ONE (13:27)
[2016-07-17] MEDS ORDERED: ONDANSETRON 4 MG/2 ML VIAL ONE (13:27)
[2016-07-17] MEDS ORDERED: BUPIVACAINE 0.25% 270 ML in PUMP SET 1 EA MISC SCH (13:30)
[2016-07-17] MEDS ORDERED: PHM DO NOT USE-BUPIVACAINE 0.25% THORACOTOMY MISC SCH (13:30)
[2016-07-17] MEDS ORDERED: BUPIVACAINE 0.25% 30 ML SDV ONE (13:35)
[2016-07-17] MEDS ORDERED: PHENYLEPHRINE HCL 100 MCG/ML SYR ONE (13:37)
[2016-07-17] MEDS ORDERED: morphINE *ANESTHESIA ONLY* 10 MG/ML VIAL ONE (13:52)
[2016-07-17] MEDS ORDERED: SUGAMMADEX SODIUM 200 MG/2 ML VIAL IVP ONE (14:19)
[2016-07-17] MEDS ORDERED: NALOXONE HCL 0.4 MG/ML INJ IVP PRN (14:39)
--- NOTE | 2016-07-17 14:40 | POSTOPPROG ---
Post Op Note Date of Operation: 07/17/16 Surgeon: Rene Marcano (, FACS) Anesthesiologist: Darien Sher MD Anesthesia: GET(General Endotracheal) Pre-op Diagnosis: SBO Post-op Diagnosis: small bowel volvulus/jejunal lesion s Procedure: enterolysis/detosion, resection small bowel lesion x 2 Findings: single band adhesion obstruction TI Inf/Abcess present in the surg proc area at time of surgery?: No Specimen(s): jejunal lesions/nodules x 2
[2016-07-17] MEDS: HYDROmorphONE/DILAUDID 6 MG/30 ML PCA IV PRN (17:18)
[2016-07-17] MEDS: D5W 1/2 NS 1,000 ML IV SCH (17:18)
--- NOTE | 2016-07-17 22:12 | GOP ---
[f rep st] OPERATIVE REPORT DATE OF OPERATION: 07/17/2016 SURGEON: Rene Marcano MD, FACS ANESTHESIA: General endotracheal. ANESTHESIOLOGIST: Darien Sher MD PREOPERATIVE DIAGNOSIS: 1. Small-bowel obstruction. 2. Status post renal transplant. POSTOPERATIVE DIAGNOSIS: 1. Small-bowel obstruction. 2. Small bowel volvulus. 3. Jejunal serosal lesions of indeterminate etiology. PROCEDURE PERFORMED: 1. Laparotomy with lysis of adhesions and detorsion for volvulus. 2. Excision of jejunal serosal lesions of indeterminate etiology x2. FINDINGS: 1. Mildly ischemic bowel secondary to volvulus. 2. Single band adhesion between the jejunum and root of the mesentery obstructing the terminal ilium just proximal to the ileocecal valve. 1. Jejunal serosal lesions of indeterminate etiology measuring approximately 6 mm and 1.5 cm excised from the serosa with full-thickness bowel wall using a EBER stapler and submitted for permanent section. ESTIMATED BLOOD LOSS: 10 mL. DESCRIPTION OF PROCEDURE: After informed consent was obtained, the patient was brought to the operating room and placed under general anesthesia. The abdomen was prepped and draped in usual fashion. Before proceeding, a time-out and identification of patient was performed. She had undergone a small bowel follow -through for a suspected partial small bowel obstruction and was found to have complete small bowel obstruction without passage of contrast into the colon at approximately 16 hours after initiation of her study. She had multiple prior operations, including 3 prior renal transplants, bilateral nephrectomy, and peritoneal dialysis catheter placements in the past. She had also undergone repair of an incisional hernia with mesh in the remote past. The abdomen was entered through a low midline incision from the umbilicus down to the pubis. There were no anterior abdominal wall adhesions. A small amount of [id number], clear peritoneal fluid was encountered. The bowel was noted to be ischemic. The incision was extended above the umbilicus and the bowel gently manipulated and the adhesion causing the obstruction found to be at the base of the mesentery from the midjejunum. This was lysed using a combination of sharp dissection and cautery for hemostasis. The adhesion had obstructed the terminal ilium, which was in the midline along with the patient' s cecum and appendix. These had been displaced by her most recent renal transplant and there was no fixation of the right colon. The adhesion had caused a partial bowel volvulus with the bowel being rotated clockwise around the point of obstruction. After the bowel was detorsed, color returned from a dusky purple to a pink healthy color of the bowel. Running the bowel from the ligament of Treitz to the ileocecal valve, I noted 2 unusual appearing serosal lesions, as well as a small hematoma at the base of the mesentery. The lesions were indeterminate in etiology and appeared neoplastic, but had benign characteristics in general. One measured approximately 6 mm, the other approximately 1.5 cm. Both were resected transversely with firings of the EBER stapler with full-thickness serosa adjacent to it. These were submitted for permanent section. The staple lines were oversewn with interrupted 3-0 Vicryl sutures to secure hemostasis. I should mention that the patient's INR was 1.7 going into the OR and bleeding during the surgery was minimal and easily controlled. The hematoma at the base of the mesentery appeared stable, and was not expanding at time of surgery, and was left undisturbed. The bowel was returned to the abdominal cavity. Warm saline was used to irrigate the peritoneal cavity and hemostasis appeared secure. A sheet of Interceed was placed at the root of the mesentery where the adhesion had occurred in an attempt to prevent future adhesions at this location. Hemostasis appeared secure. The bowel appeared healthy. The abdominal wall was closed with a single layer of continuous running #1 PDS suture. ON-Q pumps were placed adjacent to the incision bilaterally 10 cm in length and were primed with 0.25% Marcaine. These were secured to the skin with Dermabond and Tegaderm. The incision was closed with lisa. Sterile dressings were applied. The patient was returned to the recovery room, extubated, in satisfactory condition. Needle , sponge, and instrument counts were correct. COMPLICATIONS: None. /[id number]/MODL MTDD
[2016-07-18] MEDS: D5W 1/2 NS 1,000 ML IV SCH ×2 (04:33→13:18)
[2016-07-18 05:14] LABS: INR 1.21 (0.83-1.16); PROTIME(PATIENT) 15.3 SEC (12.0-15.0)
[2016-07-18 05:20] LABS: ALANINE AMINOTRANSFERASE 27 IU/L (9-52); ALBUMIN 2.8 g/dL (3.5-5.0); ALKALINE PHOSPHATASE 36 IU/L (38-126); ANION GAP 5 mEq/L (8-16); ASPARTATE AMINOTRANSFERASE 20 IU/L (14-46); BILIRUBIN,TOTAL 0.8 mg/dL (0.1-1.4); CALCIUM 8.3 mg/dL (8.5-10.4); CARBON DIOXIDE 25 mEq/l (22-31); CHLORIDE 104 mEq/L (97-110); CREATININE 1.1 mg/dL (0.6-1.0); GLOMERULAR FILTRATION RATE 53; GLUCOSE 125 mg/dL (70-100); POTASSIUM 4.1 mEq/L (3.5-5.2); SODIUM 134 mEq/L (134-144); TOTAL PROTEIN 5.4 g/dL (6.3-8.2)
[2016-07-18 06:57] LABS: % IMMATURE GRANULYOCYTES 0.6 % (0.0-1.1); ABSOLUTE IMMATURE GRANULOCYTES 0.04 10^3/uL (0.00-0.10); ADD DIFF? NO; ADD MORPH? NO; ADD SCAN? YES; ATYPICAL LYMPHOCYTE FLAG 0 (0-99); FRAGMENT RBC FLAG 0 (0-99); HEMATOCRIT 35.9 % (38.0-47.0); HEMOGLOBIN 11.7 g/dL (12.6-16.3); LEFT SHIFT FLG 120 (0-99); LIPEMIA HEMOLYSIS FLAG 80 (0-99); MEAN CELL HEMOGLOBIN CONCENTR. 32.6 g/dL (32.4-36.7); MEAN CELL VOLUME 95.2 fL (81.5-99.8); MEAN PLATELET VOLUME 10.2 fL (8.7-11.7); PLATELET CLUMPS FLAG 0 (0-99); PLATELET COUNT 267 10^3/uL (150-400); RED BLOOD CELL COUNT 3.77 10^6/uL (4.18-5.33); RED CELL DISTRIBUTION WIDTH 14.1 % (11.5-15.2)
[2016-07-18 07:15] LABS: SCAN NEGATIVE
[2016-07-18] MEDS: FAMCICLOVIR 250 MG TAB PO SCH (08:17)
--- NOTE | 2016-07-18 09:01 | SOAPPROG ---
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 07/16/16 11:16 07/17/16 08:32 07/18/16 08:58 Objective: Vital Signs Temp Pulse Resp BP Pulse Ox 36.9 C 73 18 105/72 90 L 07/18/16 08:00 07/18/16 08:00 07/18/16 08:00 07/18/16 08:00 07/18/16 08:00 Laboratory Results 07/18/16 06:30 07/18/16 04:55 07/17/16 07/18/16 07/19/16 05:59 05:59 05:59 Intake Total 2415 2839 Output Total 1600 1075 Balance 815 1764 PT 15.3 SEC (12.0-15.0) H 07/18/16 04:55 INR 1.21 (0.83-1.16) H 07/18/16 04:55 Physical Exam - Physical Exam General Appearance: alert, no apparent distress Abdomen: soft, distended, other (hypoactive bowel sounds/mild blood staining of dressing/On-Q catheters intact) Neuro/Psych: alert, normal mood/affect ICD10 Worksheet Patient Problems: Problems Problem Status Onset Bowel obstruction Acute 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
[2016-07-18] MEDS ORDERED: NS 1,000 ML IV ONE (09:25)
[2016-07-18] MEDS: methylPREDNISolone SOD SUCC 40 MG/ML VIAL IVP SCH (09:36)
[2016-07-18] MEDS: MYCOPHENOLATE MOFETIL HCL IV SCH ×2 (09:36→21:00)
[2016-07-18] MEDS: D5W IV SCH ×2 (09:36→21:00)
[2016-07-18] MEDS: LEVOTHYROXINE 100 MCG/5 ML SYR IVP SCH (09:50)
--- NOTE | 2016-07-18 11:26 | HOSPPROG ---
Hospitalist Progress Note Assessment/Plan: * recurrent small-bowel obstruction/volvulus/early ischemia * Status post surgery * history of renal transplant * Nephrology input appreciated * Continue immunosuppressives * A lot of NG tube output. 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 Objective: Vital Signs Temp Pulse Resp BP Pulse Ox 37.1 C 70 16 104/68 94 07/18/16 10:00 07/18/16 10:00 07/18/16 10:00 07/18/16 10:00 07/18/16 10:00 Laboratory Results 07/18/16 06:30 07/18/16 04:55 07/17/16 07/18/16 07/19/16 05:59 05:59 05:59 Intake Total 2415 2839 Output Total 1600 1075 Balance 815 1764 PT 15.3 SEC (12.0-15.0) H 07/18/16 04:55 INR 1.21 (0.83-1.16) H 07/18/16 04:55 Discussed with surgery - Physical Exam Constitutional: no apparent distress, appears nourished, not in pain Eyes: anicteric sclera, EOMI Ears, Nose, Mouth, Throat: moist mucous membranes Cardiovascular: regular rate and rhythym Respiratory: no respiratory distress Gastrointestinal: other (Decreased bowel sounds mild distention soft) Skin: warm Neurologic: AAOx3 Psychiatric: interacting appropriately, not anxious, not encephalopathic, thought process linear ICD10 Worksheet Patient Problems: Problems Problem Status Onset Bowel obstruction Acute 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
[2016-07-18] MEDS: ENOXAPARIN 40 MG/0.4 ML SYR SC SCH (13:16)
--- NOTE | 2016-07-18 17:27 | SOAPPROG ---
[facility] Progress Note Assessment/Plan: Assessment/Plan: h/o renal transplant: baseline Cr around 1.2-1.4, currently stable at 1.1. - Will continue IV solumedrol and IV Cellcept. - Will switch back to her PO regimen as soon as she is able to tolerate pills. - Will continue to monitor renal function. - Will change IVFs to D5NS. Hypotension: BP is a bit soft today, will switch IVFs to D5NS @ 125ml/hr. SBO: s/p surgery yesterday. Subjective: No acute events overnight. Pt had surgery yesterday with lysis of adhesions, did not require bowel resection. She is doing well today, bowels still quiet, still not taking pills. Her BP has been a bit soft, got a fluid bolus last night. Objective: Vital Signs Temp Pulse Resp BP Pulse Ox 36.8 C 80 18 110/73 91 L 07/18/16 15:48 07/18/16 15:48 07/18/16 15:48 07/18/16 15:48 07/18/16 15:48 Laboratory Results 07/18/16 06:30 07/18/16 04:55 07/17/16 07/18/16 07/19/16 05:59 05:59 05:59 Intake Total 2415 2839 Output Total 1600 1075 Balance 815 1764 PT 15.3 SEC (12.0-15.0) H 07/18/16 04:55 INR 1.21 (0.83-1.16) H 07/18/16 04:55 General: alert and oriented, no acute distress Eyes; EOMI, PERRL OP: NG tube in place CV: RRR Resp: nonlabored respirations, CTAB Abd: Soft, mildly distended, no bowel sounds Ext: no edema Neuro: CN II-XII Grossly intact, no asterixis Psych: cooperative, appropriate mood and affect ICD10 Worksheet Patient Problems: Problems Problem Status Onset Bowel obstruction Acute 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
[2016-07-18] MEDS: D5W NS 1,000 ML IV SCH (17:35)
[2016-07-19] MEDS: D5W NS 1,000 ML IV SCH ×2 (05:44→16:40)
--- NOTE | 2016-07-19 08:18 | SOAPPROG ---
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 07/16/16 11:16 07/17/16 08:32 07/18/16 08:58 07/19/16 08:16 Subjective: resting comfortably/no flatus or stool Objective: Vital Signs Temp Pulse Resp BP Pulse Ox 36.9 C 66 16 127/82 H 90 L 07/19/16 05:47 07/19/16 05:47 07/19/16 05:47 07/19/16 05:47 07/19/16 05:47 Laboratory Results 07/18/16 06:30 07/18/16 04:55 07/18/16 07/19/16 07/20/16 05:59 05:59 05:59 Intake Total 2839 2212 Output Total 1075 2500 Balance 1764 -288 PT 15.3 SEC (12.0-15.0) H 07/18/16 04:55 INR 1.21 (0.83-1.16) H 07/18/16 04:55 - Pending Discharge Pending Discharge Within 24 Hours: No Pending Discharge Within 48 Hours: No Physical Exam - Physical Exam General Appearance: alert, no apparent distress Abdomen: normal bowel sounds, soft, distended, other (dressings intact) ICD10 Worksheet Patient Problems: Problems Problem Status Onset Bowel obstruction Acute 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
[2016-07-19] MEDS: MYCOPHENOLATE MOFETIL HCL IV SCH ×2 (09:07→21:25)
[2016-07-19] MEDS: D5W IV SCH ×3 (09:07→21:25)
[2016-07-19] MEDS: methylPREDNISolone SOD SUCC 40 MG/ML VIAL IVP SCH (09:12)
[2016-07-19] MEDS: ENOXAPARIN 40 MG/0.4 ML SYR SC SCH (09:16)
[2016-07-19] MEDS: FAMCICLOVIR 250 MG TAB PO SCH (09:53)
--- NOTE | 2016-07-19 10:43 | SOAPPROG ---
[facility] Progress Note Assessment/Plan: Assessment: 1. post op SBO Now clamped. Abd distended. Positive but hypoactive BS. Follow. 2. Renal Allograft Labs look excellent. Continue IV meds. 3. Anticoagulation I will review lovenox dosing with primary service Plan: 07/19/16 10:38 Subjective: Still with incisional pain Objective: Vital Signs Temp Pulse Resp BP Pulse Ox 37.1 C 75 18 125/84 H 92 07/19/16 10:00 07/19/16 10:00 07/19/16 10:00 07/19/16 10:00 07/19/16 10:00 Laboratory Results 07/18/16 06:30 07/18/16 04:55 07/18/16 07/19/16 07/20/16 05:59 05:59 05:59 Intake Total 2839 2212 Output Total 1075 2500 Balance 1764 -288 PT 15.3 SEC (12.0-15.0) H 07/18/16 04:55 INR 1.21 (0.83-1.16) H 07/18/16 04:55 Physical Exam - Physical Exam General Appearance: no apparent distress Respiratory: lungs clear Cardiac/Chest: regular rate, rhythm Abdomen: distended, other (hypoactive BS) Extremities: normal inspection Neuro/Psych: oriented x 3 ICD10 Worksheet Patient Problems: Problems Problem Status Onset Bowel obstruction Acute 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
[2016-07-19] MEDS: HYDROmorphONE/DILAUDID 6 MG/30 ML PCA IV PRN (11:16)
[2016-07-19] MEDS: LEVOTHYROXINE 100 MCG/5 ML SYR IVP SCH (12:27)
--- NOTE | 2016-07-19 13:38 | HOSPPROG ---
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: Some abdominal pain Objective: Vital Signs Temp Pulse Resp BP Pulse Ox 36.8 C 76 16 132/87 H 93 07/19/16 11:35 07/19/16 11:35 07/19/16 11:35 07/19/16 11:35 07/19/16 11:35 Laboratory Results 07/18/16 06:30 07/18/16 04:55 07/18/16 07/19/16 07/20/16 05:59 05:59 05:59 Intake Total 2839 2212 Output Total 1075 2500 Balance 1764 -288 PT 15.3 SEC (12.0-15.0) H 07/18/16 04:55 INR 1.21 (0.83-1.16) H 07/18/16 04:55 Discussed with Nephrology - Physical Exam Constitutional: no apparent distress, appears nourished, not in pain Eyes: anicteric sclera, EOMI Ears, Nose, Mouth, Throat: moist mucous membranes, hearing normal, ears appear normal Cardiovascular: regular rate and rhythym, no murmur, rub, or gallop Respiratory: no respiratory distress, no rales or rhonchi, clear to auscultation Gastrointestinal: other (Minimal bowel sounds, soft moderate distention) Skin: warm Neurologic: AAOx3 Psychiatric: interacting appropriately, not anxious, not encephalopathic, thought process linear ICD10 Worksheet Patient Problems: Problems Problem Status Onset Bowel obstruction Acute 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
[2016-07-19] MEDS: CYCLOSPORINE IV SCH (20:45)
[2016-07-19] MEDS: ENOXAPARIN 60 MG/0.6 ML SYR SC SCH (20:45)
[2016-07-20] MEDS: D5W NS 1,000 ML IV SCH (02:44)
[2016-07-20] MEDS: PHENOL 177 ML THROAT SPRAY PO PRN ×2 (02:52→09:06)
[2016-07-20 04:29] LABS: % IMMATURE GRANULYOCYTES 0.8 % (0.0-1.1); ABSOLUTE IMMATURE GRANULOCYTES 0.08 10^3/uL (0.00-0.10); ADD DIFF? NO; ADD MORPH? NO; ADD SCAN? NO; ATYPICAL LYMPHOCYTE FLAG 0 (0-99); FRAGMENT RBC FLAG 0 (0-99); HEMATOCRIT 31.8 % (38.0-47.0); HEMOGLOBIN 10.3 g/dL (12.6-16.3); LEFT SHIFT FLG 10 (0-99); LIPEMIA HEMOLYSIS FLAG 80 (0-99); MEAN CELL HEMOGLOBIN 30.7 pg (27.9-34.1); MEAN CELL HEMOGLOBIN CONCENTR. 32.4 g/dL (32.4-36.7); MEAN CELL VOLUME 94.9 fL (81.5-99.8); MEAN PLATELET VOLUME 10.2 fL (8.7-11.7); PLATELET CLUMPS FLAG 0 (0-99); PLATELET COUNT 248 10^3/uL (150-400); RED BLOOD CELL COUNT 3.35 10^6/uL (4.18-5.33); RED CELL DISTRIBUTION WIDTH 13.7 % (11.5-15.2)
[2016-07-20 04:52] LABS: ALBUMIN 2.4 g/dL (3.5-5.0); ANION GAP 3 mEq/L (8-16); CALCIUM 8.1 mg/dL (8.5-10.4); CARBON DIOXIDE 24 mEq/l (22-31); CHLORIDE 108 mEq/L (97-110); CREATININE 0.8 mg/dL (0.6-1.0); GLOMERULAR FILTRATION RATE > 60; GLUCOSE 86 mg/dL (70-100); POTASSIUM 3.1 mEq/L (3.5-5.2); SODIUM 135 mEq/L (134-144)
--- NOTE | 2016-07-20 09:39 | SOAPPROG ---
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 of clear liquids 07/16/16 11:16 07/17/16 08:32 07/18/16 08:58 07/19/16 08:16 07/20/16 09:36 Subjective: still having incisional pain/no nausea or emesis NGT clamped since yesterday AM +BM/flatus Objective: Vital Signs Temp Pulse Resp BP Pulse Ox 36.6 C 82 18 128/87 H 93 07/20/16 08:00 07/20/16 08:00 07/20/16 08:00 07/20/16 08:00 07/20/16 08:00 Laboratory Results 07/20/16 04:10 07/20/16 04:10 07/19/16 07/20/16 07/21/16 05:59 05:59 05:59 Intake Total 2212 2543 Output Total 2500 2000 Balance -288 543 PT 15.3 SEC (12.0-15.0) H 07/18/16 04:55 INR 1.21 (0.83-1.16) H 07/18/16 04:55 Physical Exam - Physical Exam General Appearance: no apparent distress Cardiac/Chest: regular rate, rhythm Abdomen: normal bowel sounds, soft, distended, other (incision o.k./On-Q catheters removed) Neuro/Psych: alert, normal mood/affect, oriented x 3 ICD10 Worksheet Patient Problems: Problems Problem Status Onset Bowel obstruction Acute 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
[2016-07-20] MEDS: MYCOPHENOLATE MOFETIL HCL IV SCH ×2 (09:41→22:00)
[2016-07-20] MEDS: D5W IV SCH ×4 (09:41→22:00)
[2016-07-20] MEDS: FAMCICLOVIR 250 MG TAB PO SCH (09:41)
[2016-07-20] MEDS: methylPREDNISolone SOD SUCC 40 MG/ML VIAL IVP SCH (09:42)
[2016-07-20] MEDS: ENOXAPARIN 60 MG/0.6 ML SYR SC SCH (09:43)
[2016-07-20] MEDS: CYCLOSPORINE IV SCH ×2 (10:01→20:46)
[2016-07-20] MEDS: LEVOTHYROXINE 100 MCG/5 ML SYR IVP SCH (11:10)
--- NOTE | 2016-07-20 11:44 | SOAPPROG ---
SOAP Progress Note Assessment/Plan: Assessment: 1. Kidney transplant. Creat below b/l, at 0.8. Will slow IVF. D/c when taking po. Continue iv cellcept, solumedrol, cyclosporine until reliably taking po. 2. SBO. Due to volvulus. S/o PRITI. NGT out this am. AD per surgery. Plan: 07/20/16 11:42 07/20/16 11:42 Subjective: NGT pulled this am. Having a lot of bloating/abdom distention. 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
[2016-07-20] MEDS ORDERED: D5W 1/2 NS 1,000 ML IV SCH (12:00)
[2016-07-20] MEDS ORDERED: WARFARIN SODIUM 5 MG TAB PO ONE (15:56)
--- NOTE | 2016-07-20 15:59 | HOSPPROG ---
Hospitalist Progress Note Assessment/Plan: * recurrent small-bowel obstruction/volvulus/early ischemia * Status post surgery * Awaiting return of bowel function * history of renal transplant * Nephrology input appreciated * Continue immunosuppressives * anti phospholipid syndrome * start Coumadin today. 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 Having some flatus Objective: Vital Signs Temp Pulse Resp BP Pulse Ox 36.9 C 88 18 104/87 H 93 07/20/16 12:00 07/20/16 12:00 07/20/16 12:00 07/20/16 12:00 07/20/16 12:00 Laboratory Results 07/20/16 04:10 07/20/16 04:10 07/19/16 07/20/16 07/21/16 05:59 05:59 05:59 Intake Total 2212 2543 Output Total 2500 2000 500 Balance -288 543 -500 PT 15.3 SEC (12.0-15.0) H 07/18/16 04:55 INR 1.21 (0.83-1.16) H 07/18/16 04:55 - Physical Exam Constitutional: no apparent distress, appears nourished, not in pain Eyes: anicteric sclera, EOMI Ears, Nose, Mouth, Throat: moist mucous membranes, hearing normal Cardiovascular: regular rate and rhythym, no murmur, rub, or gallop Respiratory: no respiratory distress, no rales or rhonchi, clear to auscultation Gastrointestinal: other ( decreased bowel sounds slightly distended soft nontender) Skin: warm Neurologic: AAOx3 Psychiatric: interacting appropriately, not anxious, not encephalopathic, thought process linear ICD10 Worksheet Patient Problems: Problems Problem Status Onset Bowel obstruction Acute 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
[2016-07-20] MEDS ORDERED: ENOXAPARIN 60 MG/0.6 ML SYR SC SCH (21:00)
[2016-07-21 05:42] LABS: % IMMATURE GRANULYOCYTES 1.5 % (0.0-1.1); ABSOLUTE IMMATURE GRANULOCYTES 0.11 10^3/uL (0.00-0.10); ADD DIFF? NO; ADD MORPH? NO; ADD SCAN? NO; ATYPICAL LYMPHOCYTE FLAG 0 (0-99); FRAGMENT RBC FLAG 0 (0-99); HEMATOCRIT 33.2 % (38.0-47.0); HEMOGLOBIN 10.9 g/dL (12.6-16.3); LEFT SHIFT FLG 20 (0-99); LIPEMIA HEMOLYSIS FLAG 80 (0-99); MEAN CELL HEMOGLOBIN 30.7 pg (27.9-34.1); MEAN CELL HEMOGLOBIN CONCENTR. 32.8 g/dL (32.4-36.7); MEAN CELL VOLUME 93.5 fL (81.5-99.8); MEAN PLATELET VOLUME 10.2 fL (8.7-11.7); PLATELET CLUMPS FLAG 0 (0-99); PLATELET COUNT 271 10^3/uL (150-400); RED BLOOD CELL COUNT 3.55 10^6/uL (4.18-5.33); RED CELL DISTRIBUTION WIDTH 13.6 % (11.5-15.2)
[2016-07-21 05:45] LABS: INR 1.59 (0.83-1.16)
[2016-07-21 06:02] LABS: ALBUMIN 2.7 g/dL (3.5-5.0); ANION GAP 5 mEq/L (8-16); CALCIUM 8.7 mg/dL (8.5-10.4); CARBON DIOXIDE 23 mEq/l (22-31); CHLORIDE 106 mEq/L (97-110); CREATININE 0.9 mg/dL (0.6-1.0); GLOMERULAR FILTRATION RATE > 60; GLUCOSE 83 mg/dL (70-100); POTASSIUM 3.3 mEq/L (3.5-5.2); SODIUM 134 mEq/L (134-144)
--- NOTE | 2016-07-21 07:51 | SOAPPROG ---
SOAP Progress Note Assessment/Plan: Assessment: distal SBO s/p enterolysis/detorsion volvulus-clinically improved small bowel serosal lesions resected x 2, path shows accessory splenic implants anticoagulation/anti-phospholipid antibody-INR subtherapeutic renal transplant Plan:advance diet/oral meds o.k. to discharge later today if above tolerated FU my office next week for staple removal 07/16/16 11:16 07/17/16 08:32 07/18/16 08:58 07/19/16 08:16 07/20/16 09:36 07/21/16 07:48 Subjective: ongoing loose stools, tolerated clear liquids Objective: Vital Signs Temp Pulse Resp BP Pulse Ox 36.9 C 67 20 116/72 93 07/21/16 05:02 07/21/16 05:02 07/21/16 05:02 07/21/16 05:02 07/21/16 05:02 Laboratory Results 07/21/16 05:20 07/21/16 05:20 07/20/16 07/21/16 07/22/16 05:59 05:59 05:59 Intake Total 2543 1900 Output Total 2000 500 Balance 543 1400 PT 19.0 SEC (12.0-15.0) H 07/21/16 05:20 INR 1.59 (0.83-1.16) H 07/21/16 05:20 - Pending Discharge Pending Discharge Within 24 Hours: Yes Pending Discharge Date: 07/22/16 Pending Discharge Time: 11:00 Physical Exam - Physical Exam General Appearance: no apparent distress Cardiac/Chest: regular rate, rhythm Abdomen: normal bowel sounds, soft, distended, other (incision healing without signs of infection) ICD10 Worksheet Patient Problems: Problems Problem Status Onset Bowel obstruction Acute 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
[2016-07-21] MEDS ORDERED: HYDROmorphONE/DILAUDID 4 MG TAB PO PRN (07:52)
--- NOTE | 2016-07-21 10:05 | PDDCSUM ---
Discharge Summary Discharge Summary: DISCHARGE SUMMARY FOLLOW-UP ITEMS: Remove lisa next week at office DATE OF ADMISSION: 07/15/2016 DATE OF DISCHARGE: 07/21/2016 DISCHARGE DIAGNOSES: 1. Acute small bowel obstruction, recurrent with volvulus and early ischemia 2. Chronic antiphospholipid syndrome 3. Recurrent shingles 4. Chronic immunosuppression secondary to renal transplant 5. Chronic kidney disease stage 3 CONSULTATIONS: Nephrology, General surgery PROCEDURES / IMAGIN07/17/2016 enterolysis, de-torsion of volvulus with small bowel serosal lesions resected x2 by Dr. Rene Marcano CHIEF COMPLAINT: Acute abdominal pain SUBJECTIVE: Patient is feeling well at time of discharge, she is advancing her diet, passing flatus and stool PHYSICAL EXAM ON DISCHARGE: Systolic blood pressure is 130, heart rate 60, afebrile overnight, satting on room air, bowel sounds are hypoactive but present, abdomen is mildly distended, nontender, central incisional site without any surrounding erythema or bleeding , lung bases are clear to auscultation bilaterally LABS ON DISCHARGE: White blood cell count 7500, hemoglobin 10.9, creatinine 0.9, potassium 3.3, serum sodium 134, phosphorus 2, INR 1.6 HOSPITAL COURSE BY PROBLEM: 1. Acute small bowel obstruction. Secondary to volvulus with some evidence of ischemia, required surgical D torsion and serosal lesion resection by Dr. Rene Marcano, pathology demonstrated splenic implants and no malignancy. Patient did require extended hospitalization for ongoing nasogastric tube management and this was successfully clamped and removed on 07/20. She has advanced her diet to clears and advancing it to solids today. She is encouraged to remain on a bland diet moving forward and to follow up with Dr. Marcano next week. She will receive a prescription for some oral Dilaudid for pain management if she has some intermittent peristaltic pain. 2. Antiphospholipid syndrome. Chronic, patient requires chronic systemic anticoagulation, she is averse to Lovenox bridging therapy and will receive a final dose of 1.5 mg/Kg on the day of discharge with 2 days of an elevated Coumadin dosage 10 mg and then return to her 7.5 mg daily with repeat PT and INR next Monday. 3. Chronic kidney disease stage 3. Patient's creatinine level is at her baseline, she is status post transplant, she was seen by Nephrology during this hospitalization. 4. Chronic immunosuppression. Patient is chronically immunosuppressed due to renal transplant. She was seen by Nephrology and they advised the IV format of her suppressive medications. She will resume her home oral medications this evening. 5. Recurrent shingles. Patient was continued on famciclovir. The affected area was completely resolved at time of discharge. DISCHARGE MEDICATIONS: Please see official discharge medication reconciliation sheet in chart , Dilaudid 2 mg as needed, 40 tablets prescribed. Continue all other home medications. DISCHARGE INSTRUCTIONS: Patient should follow up with Dr. Marcano next week for staple removal, follow-up for INR check next Monday. TIME SPENT: Greater than 30 minutes were spent on direct patient care, as well as discharge planning and preparation.
[2016-07-21] MEDS: FAMCICLOVIR 250 MG TAB PO SCH (10:06)
[2016-07-21] MEDS: D5W IV SCH ×2 (10:06→10:07)
[2016-07-21] MEDS: MYCOPHENOLATE MOFETIL HCL IV SCH (10:06)
[2016-07-21] MEDS: CYCLOSPORINE IV SCH (10:07)
[2016-07-21] MEDS: methylPREDNISolone SOD SUCC 40 MG/ML VIAL IVP SCH (10:08)
[2016-07-21] MEDS ORDERED: LEVOTHYROXINE 88 MCG TAB PO SCH (11:30)
[2016-07-21] MEDS ORDERED: POTASSIUM CL 20 MEQ/15 ML UDCUP PO ONE (11:32)
[2016-07-21] MEDS ORDERED: POTASSIUM CL 20 MEQ TAB PO ONE (11:45)
[2016-07-21] MEDS: LEVOTHYROXINE 100 MCG/5 ML SYR IVP SCH (11:48)
--- NOTE | 2016-07-21 12:17 | SOAPPROG ---
SOAP Progress Note Assessment/Plan: Assessment/Plan: h/o renal transplant: baseline Cr around 1.2-1.4, currently better than baseline at 0.9. - Pt getting IV solumedrol, IV Cellcept and IV Cyclosporine. - Pt can continue her home IS regimen on discharge. Hypokalemia: K 3.3, will give KCl 20meq x1 today. Subjective: No acute events overnight. Pt with advancing diet, feeling well, being discharged today. Objective: Vital Signs Temp Pulse Resp BP Pulse Ox 36.6 C 76 16 126/80 H 96 07/21/16 11:55 07/21/16 11:55 07/21/16 11:55 07/21/16 11:55 07/21/16 11:55 Laboratory Results 07/21/16 05:20 07/21/16 05:20 07/20/16 07/21/16 07/22/16 05:59 05:59 05:59 Intake Total 2543 1900 Output Total 2000 500 Balance 543 1400 PT 19.0 SEC (12.0-15.0) H 07/21/16 05:20 INR 1.59 (0.83-1.16) H 07/21/16 05:20 General: alert and oriented, no acute distress Eyes; EOMI, PERRL OP: CLear CV: RRR REsp: nonlabored respirations Abd: Soft, nondistended Ext; no edema BLE Neuro: CN II-XII grossly intact, no asterixis Psych: cooperative, appropriate mood and affect ICD10 Worksheet Patient Problems: Problems Problem Status Onset Bowel obstruction Acute 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
[2016-07-21 15:28] VITALS: BP 123/84; PULSE 83; RESP 10; TEMP 98.1; O2SAT 94
[2016-07-21] MEDS ORDERED: WARFARIN SODIUM 7.5 MG TAB PO ONE (16:00)
[2016-07-21] MEDS ORDERED: ENOXAPARIN 100 MG/ML SYR SC SCH (21:00)
== END 2016-07-21 17:30 | disposition home or self-care (01) | DRG 335 ==
LOC: OBSVTOIN 04:33 → F2N 05:01 → F3E 07-17 15:43
PROVIDERS: ADMIT Internal Medicine; ATTEND Internal Medicine
PROC: 0DN80ZZ Release Small Intestine, Open Approach (ICD-10-PCS; principal; 2016-07-17 13:26)
PROC: 0DBA0ZX Excision of Jejunum, Open Approach, Diagnostic (ICD-10-PCS; principal; 2016-07-17 13:26)
DX: K56.5 Intestinal adhesions [bands] with obstruction (postinfection) (principal); K55.011 Focal (segmental) acute (reversible) ischemia of small intestine; M32.14 Glomerular disease in systemic lupus erythematosus; N18.3 Chronic kidney disease, stage 3 (moderate); Z94.0 Kidney transplant status; D68.61 Antiphospholipid syndrome; B02.9 Zoster without complications; E03.9 Hypothyroidism, unspecified; Z86.73 Personal history of transient ischemic attack (TIA), and cerebral infarction without residual deficits; Z79.01 Long term (current) use of anticoagulants
CPT/HCPCS: 96374; C1751; C1765; J0690; J1100; J1170; J1650; J2001; J2250; J2370; J2405; J2550; J2704; J2765; J3010; J3430; J7516

== ENCOUNTER 2016-08-05 09:27 | Emergency (ER) | payer OTHER ==
[2016-08-05 09:34] VITALS: RESP 18
--- NOTE | 2016-08-05 09:37 | EDPHY ---
H & P Time Seen by Provider: 08/05/16 09:36 HPI/ROS: CHIEF COMPLAINT: INR 15 HISTORY OF PRESENT ILLNESS: This 50-year-old woman had surgery on July 17 for bowel obstruction and was discharged on July 21. She has not been eating very well since then. She did developed an incisional infection and was started on doxycycline which gave her diarrhea and then was switched to moxifloxacin. She had her labs drawn yesterday and was told by her worm picker come for evaluation because her INR was elevated. She does not have symptoms of bleeding. No nose bleeding or extra bruising, no black or bloody stools. Not lightheaded or dizzy. She still has by her report a poor appetite and less than normal oral intake. REVIEW OF SYSTEMS: Eye: no change in vision ENT: no sore throat Cardiac: no chest pain or syncope Pulmonary: no cough or SOB Abdomen: no vomiting, diarrhea, abdominal pain Musculoskeletal: no back pain Skin: Some very slight scattered bruising from intravenous access from previous hospitalization, no new bruising. Neuro: no headache Constitutional: no fever : no urinary symptoms A comprehensive 10 point review of systems is otherwise negative aside from elements mentioned in the history of present illness. PAST MEDICAL HISTORY: History and physical by Dr. Mcclain dated 07/15/2016 personally reviewed. Discharge summary dated 07/21/2016 personally reviewed. Includes lupus with lupus nephropathy and renal transplant x3, baseline creatinine 1.4, thyroid. Chronic anti phospholipid syndrome, shingles, immunosuppression. Acute small-bowel obstruction with volvulus and surgical intervention on 07/17/2016. Social history: Nonsmoker General Appearance: Alert and conversant, cooperative. Eyes: No scleral icterus. ENT, Mouth: Normal mucous membranes. Respiratory: Normal respiratory effort, breath sounds equal, lungs are clear to auscultation. Cardiovascular: Regular rate and rhythm. Gastrointestinal: Abdomen is soft and non tender. Midline incision has 1 cm dehiscence inferiorly but no redness or drainage or pus or tenderness. Neurological: Alert and oriented x3. Normally conversant. Face symmetric, normal movement and sensation in all extremities. Skin: Occasional bruising on right hand and left AC but no other bruising or petechiae or purpura. Musculoskeletal: No peripheral edema and no joint swelling. Psychiatric: Not agitated. Emergency Department course/MDM: Possibly related to a quinolone use and warfarin. Plan to check INR and creatinine. 1014: Hematocrit noted at 37, increased from most recent values. 1050: Results discussed, but no evidence of active bleeding. Warned to stop moxifloxacin as she only has 1 dose left; her incision does not appear acutely infected today. Warned to stop her Coumadin until advised to restart by her doctor. 1057: Discussed with on-call worm picker who recommends: Oral Vitamin K 2.5, hold coumadin and get INR checked at [facility] office Monday morning, per Dr. Royal. Smoking Status: Never smoked Constitutional: Initial Vital Signs Temperature (C) 36.6 C 08/05/16 09:30 Heart Rate 79 08/05/16 09:30 Respiratory Rate 18 08/05/16 09:30 Blood Pressure 104/84 H 08/05/16 09:30 O2 Sat (%) 97 08/05/16 09:30 O2 Delivery Mode Room Air Allergies/Adverse Reactions: acyclovir Allergy (Intermediate, Verified 07/23/15 10:58) VERTIGO diazepam [From Valium] Allergy (Verified 07/23/15 10:58) droperidol [From Inapsine] Allergy (Verified 07/23/15 10:58) ibuprofen Allergy (Verified 07/23/15 10:58) Sulfa (Sulfonamide Antibiotics) Allergy (Verified 07/23/15 10:58) VANCYCLOVIR Allergy (Intermediate, Uncoded 07/23/15 10:58) VERTIGO Home Medications: Medication Instructions Recorded Levothyroxine [Synthroid 88 mcg 88 mcg PO DAILY06 07/09/09 (*)] cycloSPORINE [sandIMMUNE] 75 mg PO BID 07/09/09 predniSONE 5 mg PO DAILY 07/23/15 Calcitriol [Calcitriol (*)] 0.25 mcg PO MO 01/21/16 Mycophenolate Mofetil [Cellcept] 500 mg PO BID 01/21/16 Warfarin Sodium [Coumadin 7.5MG 7.5 mg PO HS 01/21/16 (*)] Famciclovir [Famvir 250 MG (*)] 250 mg PO DAILY 07/15/16 Acetaminophen [Tylenol 325mg (*)] 650 mg PO Q4HRS PRN #0 tab 07/21/16 HYDROmorphone HCL [Dilaudid 2 mg 2 mg PO Q4 PRN #40 tab 07/21/16 (*)] Medical Decision Making Consult/Admit Bed Type: Lele Chaparro - Data Points Laboratory Results: Laboratory Results 08/05/16 10:09 08/05/16 10:09 08/05/16 08/05/16 08/05/16 10:09 10:09 10:09 WBC 7.56 10^3/uL 10^3/uL (3.80-9.50) RBC 4.01 10^6/uL L 10^6/uL (4.18-5.33) Hgb 12.1 g/dL L g/dL (12.6-16.3) Hct 37.2 % L % (38.0-47.0) MCV 92.8 fL fL (81.5-99.8) MCH 30.2 pg pg (27.9-34.1) MCHC 32.5 g/dL g/dL (32.4-36.7) RDW 14.6 % % (11.5-15.2) Plt Count 647 10^3/uL H 10^3/uL (150-400) MPV 9.3 fL fL (8.7-11.7) Neut % (Auto) 54.4 % % (39.3-74.2) Lymph % (Auto) 34.7 % % (15.0-45.0) Evangeline % (Auto) 9.0 % % (4.5-13.0) Eos % (Auto) 0.9 % % (0.6-7.6) Baso % (Auto) 0.7 % % (0.3-1.7) Nucleat RBC Rel Count 0.0 % % (0.0-0.2) Absolute Neuts (auto) 4.12 10^3/uL 10^3/uL (1.70-6.50) Absolute Lymphs (auto) 2.62 10^3/uL 10^3/uL (1.00-3.00) Absolute Monos (auto) 0.68 10^3/uL 10^3/uL (0.30-0.80) Absolute Eos (auto) 0.07 10^3/uL 10^3/uL (0.03-0.40) Absolute Basos (auto) 0.05 10^3/uL 10^3/uL (0.02-0.10) Absolute Nucleated RBC 0.00 10^3/uL 10^3/uL (0-0.01) Immature Gran % 0.3 % % (0.0-1.1) Immature Gran # 0.02 10^3/uL 10^3/uL (0.00-0.10) PT 82.3 SEC H SEC (12.0-15.0) INR 10.14 H* (0.83-1.16) Sodium 140 mEq/L mEq/L (134-144) Potassium 3.6 mEq/L mEq/L (3.5-5.2) Chloride 110 mEq/L mEq/L (97-110) Carbon Dioxide 17 mEq/l L mEq/l (22-31) Anion Gap 13 mEq/L mEq/L (8-16) BUN 12 mg/dL mg/dL (7-23) Creatinine 1.3 mg/dL H mg/dL (0.6-1.0) Estimated GFR 44 Glucose 75 mg/dL mg/dL (70-100) Calcium 9.2 mg/dL mg/dL (8.5-10.4) Medications Given: Discontinued Medications Phytonadione (Vitamin K) 2.5 mg PO EDNOW ONE Stop: 08/05/16 11:00 Last Admin: 08/05/16 11:12 Dose: Not Given Departure - Departure Disposition: Home, Routine, Self-Care Clinical Impression: Elevated INR Condition: Good Instructions: Warfarin (By mouth) Additional Instructions: Stop coumadin until directed to restart by your physician. Do not take your last dose of moxifloxacin. Recheck INR on Monday. Please return immediately for black or bloody stools, severe bruising, nose bleed, any other evidence of acute bleeding. Referrals: Vivek Carr MD [Primary Care Provider] - 08/08/16
[2016-08-05 10:11] LABS: % IMMATURE GRANULYOCYTES 0.3 % (0.0-1.1); ABSOLUTE IMMATURE GRANULOCYTES 0.02 10^3/uL (0.00-0.10); ADD DIFF? NO; ADD MORPH? NO; ADD SCAN? NO; ATYPICAL LYMPHOCYTE FLAG 0 (0-99); FRAGMENT RBC FLAG 0 (0-99); HEMATOCRIT 37.2 % (38.0-47.0); HEMOGLOBIN 12.1 g/dL (12.6-16.3); LEFT SHIFT FLG 0 (0-99); LIPEMIA HEMOLYSIS FLAG 80 (0-99); MEAN CELL HEMOGLOBIN 30.2 pg (27.9-34.1); MEAN CELL HEMOGLOBIN CONCENTR. 32.5 g/dL (32.4-36.7); MEAN CELL VOLUME 92.8 fL (81.5-99.8); MEAN PLATELET VOLUME 9.3 fL (8.7-11.7); PLATELET CLUMPS FLAG 0 (0-99); PLATELET COUNT 647 10^3/uL (150-400); RED BLOOD CELL COUNT 4.01 10^6/uL (4.18-5.33); RED CELL DISTRIBUTION WIDTH 14.6 % (11.5-15.2)
[2016-08-05 10:33] LABS: CALCIUM 9.2 mg/dL (8.5-10.4); CREATININE 1.3 mg/dL (0.6-1.0); POTASSIUM 3.6 mEq/L (3.5-5.2)
[2016-08-05 10:36] LABS: PROTIME(PATIENT) 82.3 SEC (12.0-15.0)
[2016-08-05 10:38] LABS: INR 10.14 (0.83-1.16)
[2016-08-05] MEDS ORDERED: PHYTONADIONE 2.5 MG/2.5 ML ORAL UDL PO ONE (10:59)
[2016-08-05 11:09] VITALS: BP 118/76; PULSE 67; TEMP 98.1; O2SAT 95
== END 2016-08-05 11:11 | disposition home or self-care (01) ==
LOC: CED 09:27
DX: R79.1 Abnormal coagulation profile (principal); Z79.01 Long term (current) use of anticoagulants
CPT/HCPCS: 80048-PO; 85025-PO; 85610-PO

== ENCOUNTER 2017-07-11 14:21 | Emergency (ER) | payer BC ==
[2017-07-11] MEDS ORDERED: LIDOCAINE 4%/MENTHOL 1% PATCH TD ONE (15:17)
--- NOTE | 2017-07-11 15:58 | EDPHY ---
H & P Stated Complaint: low back injury occurred yesterday morning when heavy lifting Time Seen by Provider: 07/11/17 15:05 HPI/ROS: 51 yo F presents with lupus, kidney transplant, daily prednisone use, long-term anticoagulant c/o lower back pain radiating to her right lateral thigh and right distal anterior thigh. Pt states she was lifting something heavy and turning when she felt a pop in her right lower back, at that time she was on her way to work and worked the entire day and felt somewhat better as the day went by however overnight and today the pain has returned in her lower back radiating to her right hip right lateral thigh. No loss of bowel or bladder control, no numbness or tingling in her extremities. No fever or chills Review of systems As per HPI General no fever no chills no weakness HEENT no eye pain no eye discharge. No eye redness, no sore throat Respiratory no cough, no shortness of breath Cardiac no chest pain, no peripheral edema GI no abdominal pain, no diarrhea, no constipation, no nausea, no vomiting no flank pain, no hematuria, no dysuria Musculoskeletal no myalgias, no joint pain Heme no easy bruising, no easy bleeding Endo no polyuria, no polydipsia Skin no rashes, no pruritus Neuro no syncope, no dizziness, no headaches Psych is no suicidal ideation, no homicidal ideation Source: Patient Exam Limitations: No limitations - Personal History LMP (Females 10-55): Extended Cycle BCP/Inj Current Tetanus/Diphtheria Vaccine: Yes - Medical/Surgical History Hx Asthma: No Hx Chronic Respiratory Disease: No Hx Diabetes: No Hx Cardiac Disease: No Hx Renal Disease: Yes Hx Cirrhosis: No Hx Alcoholism: No Hx HIV/AIDS: No Hx Splenectomy or Spleen Trauma: Yes Other PMH: PSHx: bilateral nephrectomy. rigtht kidney transplant. splenectomy. lupus antibody anticoag. lupus, SB-resection. CVA. PMHx: hypothyroid - Family History Significant Family History: No pertinent family hx - Social History Smoking Status: Never smoked Alcohol Use: None Drug Use: None - Physical Exam Exam: 51-year-old female alert and oriented no acute distress nontoxic appearance, afebrile Atraumatic normocephalic Neck supple nontender, no JVD Lungs clear to auscultation bilaterally Heart regular rate and rhythm without murmur rub or gallop Abdomen nondistended bowel sounds present soft Back no swelling, no ecchymosis no rash no step-offs, no reproducible tenderness Straight leg raise initiate some symptoms in lower back and right hip however does not cause paresthesias or weakness Deep tendon reflexes intact Gait intact Sensation intact Constitutional: Initial Vital Signs Temperature (C) 37.3 C 07/11/17 14:41 Heart Rate 81 07/11/17 14:41 Respiratory Rate 18 07/11/17 14:41 Blood Pressure 121/87 H 07/11/17 14:41 O2 Sat (%) 95 07/11/17 14:41 O2 Delivery Mode Room Air Allergies/Adverse Reactions: acyclovir Allergy (Intermediate, Verified 07/11/17 14:39) VERTIGO diazepam [From Valium] Allergy (Verified 07/11/17 14:39) droperidol [From Inapsine] Allergy (Verified 07/11/17 14:39) ibuprofen Allergy (Verified 07/11/17 14:39) Sulfa (Sulfonamide Antibiotics) Allergy (Verified 07/11/17 14:39) valacyclovir Allergy (Verified 07/11/17 14:39) Home Medications: Medication Instructions Recorded Levothyroxine [Synthroid 88 mcg 88 mcg PO DAILY06 07/09/09 (*)] cycloSPORINE [sandIMMUNE] 75 mg PO BID 07/09/09 predniSONE 5 mg PO DAILY 07/23/15 Calcitriol [Calcitriol (*)] 0.25 mcg PO MO 01/21/16 Mycophenolate Mofetil [Cellcept] 500 mg PO BID 01/21/16 Warfarin Sodium [Coumadin 7.5MG 7.5 mg PO HS 01/21/16 (*)] Famciclovir [Famvir 250 MG (*)] 250 mg PO DAILY 07/15/16 Acetaminophen [Tylenol 325mg (*)] 650 mg PO Q4HRS PRN #0 tab 07/21/16 Lidocaine [Lidoderm] 1 - 3 each TP DAILY PRN 10 Days 07/11/17 #30 adh..patch predniSONE 40 mg PO DAILY 5 Days #10 tab 07/11/17 Medical Decision Making - Diagnostics Imaging Results: Imaging Impressions Lumbar Spine X-Ray 07/11/17 15:18 Impression: Negative lumbar spine radiographs. Hip X-Ray 07/11/17 15:19 Impression: Negative radiographs of both hips. ED Course/Re-evaluation: Patient seen and evaluated for lower back pain rating to right hip and right thigh after heavy lifting. Lumbar spine plain radiographs negative Right hip plain radiographs negative Impression Lower back strain Likely L4 radiculopathy Plan Acetaminophen Lidocaine patch Prednisone burst Follow-up PCP Differential Diagnosis: Differential diagnosis considered but not limited to an and no particular order: Lower back strain, kidney stone, right hip bursitis, right hip fracture, right hip strain, lumbar radiculopathy, herniated disc, vertebral subluxation, vertebral compression fracture - Data Points Medications Given: Discontinued Medications Miscellaneous Medication (Icy Hot Lidocaine/Menthol 4%/1% Patch) 1 patch TD EDNOW ONE Stop: 07/11/17 15:18 Last Admin: 07/11/17 15:41 Dose: 1 patch Departure - Departure Disposition: Home, Routine, Self-Care Clinical Impression: Acute lumbar back pain, Lumbosacral radiculopathy at L4 Condition: Good Instructions: Low Back Strain (ED), Lumbar Radiculopathy (ED), Lower Back Exercises (ED) Additional Instructions: Rest Lidocaine patches, ice to painful area in lower back Prednisone burst, 40 mg for 5 days Referrals: Vivek Carr MD [Primary Care Provider] - As per Instructions Prescriptions: Lidocaine [Lidoderm] 1 - 3 each TP DAILY PRN 10 Days #30 adh..patch PRN Reason: Pain, Severe predniSONE 40 mg PO DAILY 5 Days #10 tab
[2017-07-11 16:33] VITALS: BP 126/80
[2017-07-11] MEDS ORDERED: PATCH REMOVAL 1 EA PATCH TD SCH (21:00)
== END 2017-07-11 16:30 | disposition home or self-care (01) ==
LOC: CED 14:21
DX: M54.17 Radiculopathy, lumbosacral region (principal); Z79.01 Long term (current) use of anticoagulants; Z86.73 Personal history of transient ischemic attack (TIA), and cerebral infarction without residual deficits
CPT/HCPCS: 72100-PO; 73521-PO

== ENCOUNTER → 2017-12-25 | Outpatient (CLI) | payer BC | LOC: BRMIMAGING 08:16 | PROVIDERS: ATTEND Internal Medicine Endocrinology, Diabetes & Metabolism | DX: Z12.31 Encounter for screening mammogram for malignant neoplasm of breast (principal); M85.88 Other specified disorders of bone density and structure, other site ==